=== PATIENT | female | born 1980 | race Caucasian/White ===

== ENCOUNTER → 2020-08-07 17:29 | Outpatient (CLI) | payer OTHER, SELFPAY ==
--- NOTE | ~2020-08-07 | MM_ITS ---
EXAMINATION: MM screening yancy BI w holly HISTORY: Screening TECHNIQUE: Craniocaudal and mediolateral oblique 3-D tomosynthesis images were obtained and synthetic 2-D images were generated. CAD analysis was submitted and interpreted. COMPARISON: 11/18/2018 BREAST PARENCHYMAL COMPOSITION: There are scattered areas of fibroglandular density. FINDINGS: There is no evidence of suspicious mass, calcification, or architectural distortion to sugg est malignancy in either breast. There has been no suspicious interval change. IMPRESSION: 1. No mammographic evidence of malignancy. 2. Recommend routine screening mammography in one year. BI-RADS Category 1: Negative Reviewed, dictated and finalized at location A.
== END ==
PROVIDERS: PCP Nurse Practitioner Adult Health; Visit Provider Nurse Practitioner Adult Health
DX: Z12.31 Encounter for screening mammogram for malignant neoplasm of breast (principal)
CPT/HCPCS: 77063; 77067

== ENCOUNTER 2020-11-01 09:06 | Outpatient (CLI) | payer OTHER, SELFPAY ==
--- NOTE | 2020-11-05 16:49 | WPDHOLTEREM ---
Holter/Event Monitor Holter/Event Monitor Date of procedure: 11/01/20 Holter/Event Procedure: 48 Hr Holter Monitor Indications: Palpitations Conclusion: 1. 48 hour holter monitor on 11/01/20. 2. Underlying rhtyhm is sinus rhythm. HR range 66-160 bpm; average HR 96 bpm. 3. There are 11 premature supraventricular complexes. No supraventricular tachycardia. 4. No premature ventricular complexes. One ventricular couplet. No ventricular tachycardia. 5. No sinoatrial or atrioventricular blocks. No significant pauses greater than 2 seconds. 6. Patient reports symptoms of dizziness/heart flutter which demonstrate sinus rhythm at 98 bpm.
== END 2020-11-01 09:07 | disposition home or self-care (01) ==
LOC: ANHCARD 09:07
PROVIDERS: PCP Nurse Practitioner Adult Health; Visit Provider Nurse Practitioner Adult Health
DX: R00.2 Palpitations (principal)
CPT/HCPCS: 93225; 93226

== ENCOUNTER 2021-06-01 19:10 | Emergency (ER) | payer OTHER, SELFPAY ==
[2021-06-01] VITALS (26 sets, daily range): BP systolic 113–146; BP diastolic 72–89; PULSE 93; RESP 18; TEMP 36.2; O2SAT 97–100
--- NOTE | ~2021-06-01 | US_ITS ---
EXAMINATION: US pelvic complete w TV DATE: 06/01/2021 22:48 INDICATION: Right lower quadrant abdominal pain. TECHNIQUE: Multiple transabdominal and transvaginal sonographic images of the pelvis were obtained. COMPARISON: CT abdomen and pelvis 06/01/21 FINDINGS: TRANSABDOMINAL ULTRASOUND: The uterus is absent. There is no free fluid in the pelvis. TRANSVAGINAL ULTRASOUND: The right ovary measures 4.8 x 3.6 x 3.6 cm. There is a 3.2 cm heterogeneously hyperechoic mass in ri ght ovary. There is vascular flow in right ovary. The left ovary is not visualized. IMPRESSION: 1. 3.2 cm heterogeneously hyperechoic mass in right ovary, most likely a hemorrhagic cyst. Neoplasm i s not excluded. Pelvis ultrasound is recommended in 6-12 weeks. Reviewed, dictated and finalized at location A. PILER IMPRESSION: 1. 3.2 cm heterogeneously hyperechoic mass in right ovary, most likely a hemorr hagic cyst. Neoplasm is not excluded. Pelvis ultrasound is recommended in 6-12 weeks.
--- NOTE | ~2021-06-01 | CT_ITS ---
EXAMINATION: CT abdomen pelvis w con DATE: 06/01/2021 20:43 INDICATION: Right lower quadrant abdominal pain. TECHNIQUE: Computed tomography (CT) of the abdomen and pelvis was performed with 100 mL Omnipaque 350 intravenous contrast. Automated exposure control and iterative reconstruction technique were employe d. The dose-length product was 1252.50 mGy-cm. COMPARISON: CT abdomen 11/12/2005 FINDINGS: The visualized portions of the lung bases demonstrates minimal atelectasis. No pleural effu carolyn. The heart size is normal. No pericardial effusion. The liver, gallbladder, spleen, pancreas, ad renal glands, and kidneys are normal. There is diverticulosis of the colon without evidence of divert iculitis. There are no dilated loops of bowel. The appendix is normal. There are no pathologically en larged lymph nodes. There is no free intraperitoneal fluid. The right ovary measures 4.6 x 3.1 x 4.4 cm. The left ovary measures 4.3 x 2.9 x 2.5 cm. There is a 2.2 cm dominant follicle in left ovary. Th e uterus is absent. Again seen are innumerable benign bone islands with greatest predominance in the pelvis, consistent with osteopoikilosis. IMPRESSION: 1. Asymmetric enlargement of the right ovary. The most likely etiology is hemorrhagic cyst, but torsi on cannot be excluded. Reviewed, dictated and finalized at location E. SAMPLER IMPRESSION: 1. Asymmetric enlargement of the right ovary. The most likely etiology is hemor rhagic cyst, but torsion cannot be excluded.
[2021-06-01 19:43] LABS: Basophils Percent Auto 0.4 % (0.2-1.2); Eosinophils Absolute Auto 0.2 K/mm3 (0-0.3); Eosinophils Percent Auto 2.5 % (0-4.4); Hematocrit 35.4 % (37.0-47.0); Hemoglobin 11.8 g/dL (12.0-15.0); Immature Granulocyte Absolute 0.03 K/mm3 (0.00-0.031); Immature Granulocyte Percent A 0.4 % (0-0.5); Lymphocytes Absolute Auto 2.48 K/mm3 (0.9-3.2); Lymphocytes Percent Auto 29.4 % (18.3-44.2); Mean Corpuscular HGB Conc 33.3 g/dl (32-36); Mean Corpuscular Hemoglobin 30.8 pg (26-34); Mean Corpuscular Volume 92.4 fl (80-100); Mean Platelet Volume 10.6 fl (7.4-10.4); Monocytes Absolute Auto 0.5 K/mm3 (0.1-0.6); Monocytes Percent Auto 6.4 % (2.6-8.5); Neutrophils Absolute Auto 5.2 K/mm3 (1.3-6.7); Neutrophils Percent Auto 60.9 % (45.5-73.1); Platelet Count Result 307 k/mm3 (150-375); Red Blood Count 3.83 M/mm3 (4.2-5.4); Red Cell Distribution Width 12.7 % (11.5-14.5); White Blood Count 8.4 K/mm3 (4.5-10.0)
[2021-06-01 19:46] LABS: Add Urine Microscopic? NO; Appearance Urine Clear (Clear); Bilirubin Urine Negative (Negative); Blood Urine Negative (Negative); Color Urine Straw (Yellow); Glucose Urine UA Negative (Negative); Ketones Urine Negative (Negative); Leukocyte Esterase Ur Negative LEU/UL (Negative); Nitrate Urine Negative (Negative); Protein Urine Negative (Negative); Specific Grav Ur 1.012 (1.001-1.035); Urobilinogen Urine Negative mg/dL (<2.0)
[2021-06-01 19:56] LABS: Pregnancy On Board Control Positive; Urine Pregnancy Test Negative
[2021-06-01 19:59] LABS: Alanine Aminotransferase 28 U/L (4-35); Albumin Level 4.3 g/dL (3.5-5.1); Alkaline Phosphatase 45 U/L (38-126); Anion Gap 12 mmol/L (8-16); Aspartate Amino Transferase 25 U/L (14-36); Bilirubin,Total 0.3 mg/dL (0.2-1.3); Blood Urea Nitrogen 9 mg/dL (7-17); Carbon Dioxide 26 mmol/L (22-30); Chloride 103 mmol/L (98-107); Estimated CRCL calculation 116 ml/min; Estimated Glomerular Filt Rate > 60; Glucose 139 mg/dL (65-110); Lipase 142 U/L (23-300); Potassium 3.8 mmol/L (3.4-5.0); Sodium 141 mmol/L (137-145)
--- NOTE | 2021-06-01 20:01 | ED.ABDPAIN ---
HPI - Abdominal Pain General Chief Complaint: Abdominal Pain <Mae Acevedo PA-C - Last Filed: 06/01/21 23:33> Stated Complaint: RLQ pain <Mae Acevedo PA-C - Last Filed: 06/01/21 23:33> Time Seen by Provider: 06/01/21 19:16 <Mae Acevedo PA-C - Last Filed: 06/01/21 23:33> Source: patient <Mae Acevedo PA-C - Last Filed: 06/01/21 23:33> Mode of arrival: ambulatory <VINCENT Hightower Last Filed: 06/01/21 23:33> Limitations: no limitations <Mae Acevedo PA-C - Last Filed: 06/01/21 23:33> History of Present Illness HPI narrative: This is a 40 year old female that presents to the ER for RLQ abdominal pain present over the last couple of days. Reports it was intermittent initially. Now it has been more constant. Does report some diarrhea. Denies fever, vomiting, dysuria, hematuria. <Mae Acevedo PA-C - Last Filed: 06/01/21 23:33> Related Data Allergies/Adverse Reactions: Allergies Allergy/AdvReac Type Severity Reaction Status Date / Time erythromycin base Allergy Unknown HIVES Verified 06/01/21 19:14 Penicillins Allergy Unknown HIVES Verified 06/01/21 19:14 <Mae Acevedo PA-C - Last Filed: 06/01/21 23:33> Review of Systems Review of Systems: CONSTITUTIONAL: Denies fever GASTROINTESTINAL: Reports abdominal pain, and diarrhea. Denies nausea or vomiting. GENITOURINARY: Denies dysuria or hematuria. <Mae Acevedo PA-C - Last Filed: 06/01/21 23:33> All systems reviewed & are unremarkable except as noted in HPI and below <Mae Acevedo PA-C - Last Filed: 06/01/21 23:33> PMFSH Past Medical History Medical History: Medical History (Updated 06/02/21 @ 02:02 by Pedro Luis Ferrara MD) History of diabetes mellitus <VINCENT Hightower Last Filed: 06/01/21 23:33> Surgical History Surgical History: Surgical History (Updated 06/01/21 @ 20:05 by Mae Acevedo PA-C) History of section History of hysterectomy <Mae Acevedo PA-C - Last Filed: 06/01/21 23:33> Social History Social History: Social History (Updated 06/01/21 @ 20:04 by Mae Acevedo PA-C) Substance use: never <Mae Acevedo PA-C - Last Filed: 06/01/21 23:33> Exam Narrative: GENERAL: Well-appearing, well-nourished, and in no acute distress. HEAD: Normocephalic, atraumatic. EYES: EOMI. CHEST: Clear to auscultation. No respiratory distress. No wheezes rales or rhonchi HEART: Regular rate and rhythm. No murmur heard. Normal peripheral pulses. ABDOMEN: Soft, nondistended, normal active bowel sounds. Tender to palpation in the right lower quadrant, without guarding EXTREMITIES: Normal range of motion. No edema. SKIN: Warm, dry, no rash. NEURO: No focal deficits. Alert and oriented x3. PSYCH: Normal mood and affect <Mae Acevedo PA-C - Last Filed: 06/01/21 23:33> Course Course Emergency Course: Patient with prolonged wait for ultrasound reading. Resting comfortably. Informed of results. Recommend follow-up with Dr. Avila for further evaluation since this is her criminal justice social worker. <Pedro Luis Ferrara MD - Last Filed: 06/02/21 02:05> Vital Signs Vital signs: Vital Signs Temperature 97.1 F L 06/01/21 19:11 Pulse Rate 93 06/01/21 19:11 Respiratory Rate 18 06/01/21 19:11 Blood Pressure 146/89 H 06/01/21 19:11 Pulse Oximetry 100 06/01/21 19:11 Temperature 97.1 F L 06/01/21 19:11 Pulse Rate 93 06/01/21 19:11 Respiratory Rate 18 06/01/21 19:11 Blood Pressure 124/72 06/01/21 23:01 Pulse Oximetry 100 06/01/21 23:45 <Mae Acevedo PA-C - Last Filed: 06/01/21 23:33> Vital Signs Temperature 97.1 F L 06/01/21 19:11 Pulse Rate 93 06/01/21 19:11 Respiratory Rate 18 06/01/21 19:11 Blood Pressure 146/89 H 06/01/21 19:11 Pulse Oximetry 100 06/01/21 19:11 Temperature 97.1 F L 06/01/21 19:11 Pulse Rate 93 06/01/21 19:11 Respiratory Rate 18 06/01/21
[2021-06-01] MEDS: ONDANSETRON INJ 4 MG/2 ML VIAL IV PUSH (20:07)
[2021-06-01] MEDS: MORPHINE SULFATE (*CRX) 4 MG/ML INJ IV PUSH (20:08)
[2021-06-02] VITALS (8 sets, daily range): BP systolic 125; BP diastolic 82; PULSE 79; RESP 18; O2SAT 99–100
== END 2021-06-02 02:37 | disposition home or self-care (01) ==
PROVIDERS: Physician Assistant; Emergency Provider Emergency Medicine; PCP Nurse Practitioner Adult Health
DX: N83.201 Unspecified ovarian cyst, right side (principal); E11.9 Type 2 diabetes mellitus without complications
CPT/HCPCS: 36415; 74177; 76830; 76856; 80053; 81003; 81025; 83690; 85025; 96365; 96375; 99284; J0131; J2270; J2405; Q9967

== ENCOUNTER 2021-08-01 07:27 | Outpatient (CLI) | payer OTHER, SELFPAY ==
--- NOTE | 2021-08-01 07:43 | ECG_ITS ---
Measurements Intervals [place] Rate: 88 P: 26 [place]: 134 QRS: 97 QRSD: 90 T: 43 QT: 369 QTc: 448 Interpretive Statements SINUS RHYTHM RIGHT AXIS DEVIATION [QRS AXIS > 90] CANNOT RULE OUT ANTERIOR INFARCTION, AGE UNDETERMINED BASELINE ARTIFACT LIMITS INTERPRETATION ABNORMAL ECG NO PREVIOUS ECG AVAILABLE FOR COMPARISON Electronically Signed On 08-01-2021 16:54:05 CDT by Cortez Harvey M.D.
[2021-08-01 08:11] LABS: Hematocrit 38.5 % (37.0-47.0); Hemoglobin 12.6 g/dL (12.0-15.0)
[2021-08-01 08:21] LABS: Anion Gap 7 mmol/L (8-16); Blood Urea Nitrogen 12 mg/dL (7-17); Calcium 8.3 mg/dL (8.4-10.2); Carbon Dioxide 27 mmol/L (22-30); Chloride 104 mmol/L (98-107); Estimated Glomerular Filt Rate > 60; Glucose 171 mg/dL (65-110); Potassium 4.1 mmol/L (3.4-5.0); Sodium 138 mmol/L (137-145)
== END 2021-08-01 07:28 | disposition home or self-care (01) ==
PROVIDERS: Anesthesiology; PCP Nurse Practitioner Adult Health; Visit Provider Obstetrics & Gynecology
DX: E11.9 Type 2 diabetes mellitus without complications (principal); D64.9 Anemia, unspecified; E78.5 Hyperlipidemia, unspecified; I10 Essential (primary) hypertension; Z01.818 Encounter for other preprocedural examination; R94.31 Abnormal electrocardiogram [ECG] [EKG]
CPT/HCPCS: 36415; 80048; 85014; 85018; 93005

== ENCOUNTER 2021-08-05 00:51 | Day surgery (SDC) | payer OTHER, SELFPAY ==
[2021-07-30 09:01] VITALS: BMI 36.6
--- NOTE | 2021-07-30 09:09 | PC.NURSE ---
Report to the Outpatient Waiting Room, entrance under the green pavilion located off [facility], at time 6:00 on date 08/05/21. OR Time: 7:30. - You and your visitor will be asked a series of questions to screen for COVID 19 for your protection. - A mask is required within the hospital. One visitor will be allowed to accompany the patient into the hospital. Patients visitor will be instructed to remain with patient at all times or leave the building. We will allow the visitor to come back to the postoperative area when patient is ready. Preoperative COVID Testing Requirements: No COVID Test needed if: (proof is required; if not received patient will have Rapid Test prior to entry) - Patient has received COVID Vaccine at least 14 days prior to procedure date or - Patient has positive COVID test result within last 90 days of surgery date. COVID Test needed if above criteria is not met Patients may have clear liquids (water, carbonated beverages, clear teas, apple juice) until 3 hours prior to surgery (4:30) with a maximum of 20 ounces. - No food from midnight until time of surgery Take the following medications with a SIP of water the morning of surgery: LEVOTHYROXINE, CEFDINIR, BUSPIRONE, LEXAPRO Medications to discontinue per physician: VITAMINS/SUPPLEMENTS Date to take last dose: 08/01/21 Please no make-up, nail qatari, hairspray, perfume, deodorant, or body powder the day of surgery. No jewelry (including any body piercings) or valuables the day of surgery, leave them at home. Please take a shower or bath the night before, or the morning of, surgery with an antibacterial soap. Wear comfortable, loose fitting clothing. - Jewelry must be removed prior to entering the operating room. Rings and piercings that are not removed may be cut off. - The hospital will not accept responsibility for valuables. - Please leave all valuables, including medications, at home the day of surgery. If you are going home after surgery, a licensed dray driver must drive you home. - NO public transportation without another adult. - We recommend that an adult stay with you for 24 hours following discharge. - We also recommend that you do not drive, make important decision, drink alcoholic beverages, or take any drugs that were not prescribed by your health care provider for at least 24 hours after your discharge time. Follow any additional instructions given to you from your surgeon. Telephone instructions given to BRITANY NOEL and asked if any additional questions and then verbalized understanding. Patient advised to call surgeon office or pre surgery nurse liaison [phone] if any additional questions.
--- NOTE | 2021-08-04 18:49 | PM.IMHP ---
H&P: HPI History of Present Illness Date/Time: 08/05/21 07:06 Temi is a 40yo perimenopausal [id number] who presents for scheduled surgery. She has a h/o c/s x3 with h/o prolonged AUB, and subsequent TLH. She reports scar tissue and long standing h/o ovarian cysts (always on the right). She had sharp RLQ which lasted for a couple days which concerned her for appendicitis. She went to [place] [facility] where CT and US were performed and showed a right hemorrhagic cyst. She has continued pain; taking OTC pain meds PRN and percocet at night if needed (prescribed by ER). Repeat US showed normal ovaries but left paratubal cyst. She is tired of dealing with pain and cysts and would like to proceed with right oophorectomy with salpingectomy. Chief Complaint: pelvic pain Review of Systems Review of Systems: All systems reviewed & are unremarkable except as noted in HPI and below (HPI) PMFSH Past Medical History Medical History High blood pressure History of diabetes mellitus Thyroid disease Surgical History Surgical History H/O gynecological procedure laparoscopic Novasure uterine ablation, laparoscopy, T/L - menometrorrhagia, dysmenorrhea, undesired fertility History of section History of dilation and curettage History of hysterectomy History of tonsillectomy Family History Family History Other Heart disease Social History Social History Smoking status: Never smoker Alcohol intake: never Substance use: never Substance use type: does not use Living arrangements: with family Gender identity (if verbalized by the patient): Female Spiritual care concerns: No Meds Home Medications and Allergies Home Medications Medication Instructions Recorded Confirmed Type atorvastatin 10 mg PO DAILY 07/30/21 08/05/21 History benzonatate 100 mg PO HS 07/30/21 08/05/21 History buspirone 10 mg PO BID 07/30/21 08/05/21 History ergocalciferol (vitamin D2) 1,250 mcg PO WEEKLY 07/30/21 08/05/21 History [Vitamin D2] escitalopram oxalate [Lexapro] 5 mg PO DAILY 07/30/21 08/05/21 History ferrous sulfate 325 mg PO DAILY 07/30/21 08/05/21 History glipizide 5 mg PO TID 07/30/21 08/05/21 History lemborexant [Dayvigo] 5 mg PO HS 07/30/21 08/05/21 History levothyroxine 25 mcg PO DAILY 07/30/21 08/05/21 History lisinopril 20 mg PO DAILY 07/30/21 08/05/21 History metformin 1,000 mg PO BID 07/30/21 08/05/21 History semaglutide [Ozempic] 1 mg SUBCUT WEEKLY 07/30/21 08/05/21 History Allergies Allergy/AdvReac Type Severity Reaction Status Date / Time erythromycin base Allergy Unknown ASSUMING Verified 08/05/21 06:25 HIVES A KID Penicillins Allergy Unknown ASSUMING Verified 08/05/21 06:25 HIVES A KID Exam Const: General: cooperative, comfortable and no acute distress Resp: Effort & Inspection: normal respiratory effort Cardio: Rate: regular rate GI: Inspection: non-distended GI Palp: No abdominal tenderness and Yes Soft to palpation : Other: deferred to OR Skin: General skin exam: normal color Neuro: General: patient oriented x3 Extrem: General: normal to inspection Psych: Appearance: grossly normal Affect: normal affect Attitude: cooperative Assessment and Plan Assessment and plan (1) Chronic pelvic pain in female: Code(s): R10.2 - Pelvic and perineal pain; G89.29 - Other chronic pain Status: Acute (2) Paratubal cyst: Code(s): N83.8 - Other noninflammatory disorders of ovary, fallopian tube and broad ligament Status: Acute Additional Plan - Temi has a h/o complex Right ovarian cyst; which was found to be hemorrhagic and has resolved, but a paratubal cyst is noted. Pt has been counseled on these findings, but wants to proceed with right
[2021-08-05] VITALS (21 sets, daily range): BP systolic 101–145; BP diastolic 64–93; PULSE 87–129; RESP 12–20; TEMP 36.1–36.7; O2SAT 94–100
--- NOTE | ~2021-08-05 | CT_ITS ---
EXAMINATION: CT abdomen pelvis w con EXAM DATE: 08/06/2021 08:53 INDICATION: Incisional hematoma with continued drop in h/h . TECHNIQUE: Spiral CT of the abdomen and pelvis was performed following intravenous injection of 100 m L Omnipaque 350. Axial, coronal and sagittal images of the abdomen and pelvis were reviewed. The do se-length product (DLP) for this examination was 1270.79 mGy-cm. The exposure was tailored according to patient size (auto mA exposure control), and iterative reconstruction (ASIR) was used as addition al dose reduction technique. Comparison is made to prior examination from 06/01/2021. FINDINGS: There appears to be a pressure dressing over the left side of the abdomen. Deep to this hyp erdense region measuring 7.5 x 5.2 cm in axial dimensions, most likely hematoma within the subcutaneo us fat. This does not appear to have a contained wall. There is asymmetric thickness to the anterior abdominal muscles with the left being thicker, could be the source of the larger subcutaneous hemato ma. Small scattered foci of gas. No retroperitoneal hematoma. The liver, spleen, adrenal glands and pancreas are unremarkable. Gallbladder is unremarkable. No bi liary obstruction. Portal and splenic veins are patent. Kidneys enhance symmetrically. There is no hydronephrosis. Patient appears to had hysterectomy. There is 5 x 3 cm left ovarian cystic region. Probably hemorrhagic cyst. The bladder is unremarkable. There is no retroperitoneal or pelvic lymp hadenopathy. The appendix is normal. The stomach and small bowel are unremarkable. There is expected amount of c olonic stool. No free intraperitoneal gas. The heart is normal in size. There are no pericardial or pleural effusions. The lung bases are unremarkable. There are no osteoblastic or osteolytic les ions identified. IMPRESSION: 1. Sizable left mid abdominal subcutaneous hematoma with some thickening of the left abdominalis musc ulature, could be the source. Overlying pressure dressing. No retroperitoneal hematoma. 2. Interval increase in size of left ovary probably hemorrhagic cyst. Reviewed, dictated and finalized at location A. IMPRESSION: 1. Sizable left mid abdominal subcutaneous hematoma with some thickening of the left abdominalis musculature, could be the source. Overlying pressure dressing . No retroperitoneal hematoma. 2. Interval increase in size of left ovary probably hemorrhagic cyst.
[2021-08-05] MEDS: ACETAMINOPHEN 500 MG TABLET 1000 MG PO ×2 (06:29→18:51)
[2021-08-05] MEDS: LACTATED RINGERS 1,000 ML 30 ML IV CONT ×2 (06:35→11:24)
[2021-08-05] MEDS: KETOROLAC 15 MG/ML VIAL (*BKC) IV PUSH (06:44)
[2021-08-05 06:49] LABS: Glucose Point of Care 135 mg/dl (65-105)
--- NOTE | 2021-08-05 07:07 | WPDHPUPDATE1 ---
History and Physical Update Update Date/Time: 08/05/21 07:07 History and Physical has been reviewed, including an updated exam of the patient. There are NO changes in the patient's condition. Risks, benefits, and alternatives have been discussed and questions answered. Patient agrees to proceed with procedure.
--- NOTE | 2021-08-05 07:08 | WPDANESEPPF ---
Anes - Initial Pre Proc Eval Procedure: Operation Date: 08/05/21 07:30 Proposed Procedures p Laparoscopic Right Oophorectomy - Malka Preciado MD Date/Time: 08/05/21 07:08 Surgeon: Malka Preciado MD Pre Op Diagnosis: right ovarian cyst Patient Data Age: 40 Gender: F Height: 1.63 m Weight: 97.7 kg Last Vital Signs Temp 36.1 C L 08/05/21 06:03 Pulse 87 08/05/21 06:03 Resp 20 08/05/21 06:03 BP 101/69 08/05/21 06:03 Pulse Ox 99 08/05/21 06:03 Allergies Allergy/AdvReac Type Severity Reaction Status Date / Time erythromycin base Allergy Unknown ASSUMING Verified 08/05/21 06:25 HIVES A KID Penicillins Allergy Unknown ASSUMING Verified 08/05/21 06:25 HIVES A KID Home Medications Medication Instructions Recorded Confirmed Type atorvastatin 10 mg PO DAILY 07/30/21 08/05/21 History benzonatate 100 mg PO HS 07/30/21 08/05/21 History buspirone 10 mg PO BID 07/30/21 08/05/21 History ergocalciferol (vitamin D2) 1,250 mcg PO WEEKLY 07/30/21 08/05/21 History [Vitamin D2] escitalopram oxalate [Lexapro] 5 mg PO DAILY 07/30/21 08/05/21 History ferrous sulfate 325 mg PO DAILY 07/30/21 08/05/21 History glipizide 5 mg PO TID 07/30/21 08/05/21 History lemborexant [Dayvigo] 5 mg PO HS 07/30/21 08/05/21 History levothyroxine 25 mcg PO DAILY 07/30/21 08/05/21 History lisinopril 20 mg PO DAILY 07/30/21 08/05/21 History metformin 1,000 mg PO BID 07/30/21 08/05/21 History semaglutide [Ozempic] 1 mg SUBCUT WEEKLY 07/30/21 08/05/21 History Laboratory Tests 08/05/21 06:42 POC Capillary Glucose 135 mg/dl H mg/dl (65-105) Patient hx anesthesia problems: none Family hx anesthesia problems: none Results Review: All pre-operative results and documents have been reviewed as part of the pre-operative evaluation. [facility] Past Medical History Medical History (Updated 08/05/21 @ 07:11 by Andrew Gonzalez MD) Anxiety Depression High blood pressure History of diabetes mellitus Hyperlipidemia Thyroid disease Surgical History Surgical History H/O gynecological procedure laparoscopic Novasure uterine ablation, laparoscopy, T/L - menometrorrhagia, dysmenorrhea, undesired fertility History of section History of dilation and curettage History of hysterectomy History of tonsillectomy Family History Family History Other Heart disease Social History Social History Smoking status: Never smoker Alcohol intake: never Substance use: never Substance use type: does not use Living arrangements: with family Gender identity (if verbalized by the patient): Female Spiritual care concerns: No Anes - Eval Final PreProcedure Day of Procedure 08/05/21 07:08 Patient weight: obese Heart: regular rate and rhythm Lungs: clear to auscultation and normal air movement Airway: Mallampati scale class II Neurological: alert and oriented Last oral intake: >/= 8 hours ASA classification: III Emergent: no Anesthetic plan: proceed Anesthesia type and monitoring: general ETT Results Review: All pre-operative results and documents have been reviewed as part of the pre-operative evaluation. Informed Consent: The patient's anesthetic plan and its attendant risks and benefits were discussed with the patient/family/POA. Questions were solicited and answers provided to the satisfaction of the patient/family/POA.
[2021-08-05 10:38] LABS: Glucose Point of Care 267 mg/dl (65-105)
--- NOTE | 2021-08-05 10:41 | SUR.PHASEI ---
1032 - Dr. Gonzalez aware of accucheck of 267. no orders received
--- NOTE | 2021-08-05 10:49 | W.PM.PROC2 ---
Procedure Note - Detailed Date of Procedure 08/05/21 Pre-op Diagnosis right ovarian cyst Post-op Diagnosis Other (extensive adhesions, left ovarian cyst) Procedure Performed Laparoscopic right salpingo-oophorectomy, lysis of adhesions Surgeon Malka Preciado MD [employer] [facility] [place] Anesthesia General Indications Temi is a 40yo who presented to clinic with RLQ pain; she had been seen in the ER for concerns of appendicitis but was diagnosed with a hemorrhagic cyst. She reports a h/o recurrent RLQ pain and cysts and desired laparoscopic oophorectomy. Findings Uterus surgically absent. Extensive adhesions of the small bowel and large bowel adhered to the abdomen, pelvic side black, bladder, ovaries and in the cul-de-sac. Initially neither ovary was visualized until after extensive lysis of adhesions. Dr. Arellano was called in intra-operatively to look at the bowel and verify no injury (he did not scrub in). The right ovary was noted to be adhered to the right pelvic side wall; small hemorrhagic cyst noted, normal small portion of tube noted. Right ureter was visualized transperitoneally and well out of the surgical field. The left ovary was covered with dense adhesions and fat; when trying to dissect the adhesions; the ovarian cyst was ruptured and clear/yellow fluid was noted. No left tube was identified. The pelvis was irrigated and suctioned free of all clots. Hemoderm powder used at the end; but good hemostasis was noted. Description of Procedure Temi was taken to the operating room where she was placed under general endotracheal anesthesia without complications. She was then prepped and draped in the usual sterile fashion in the dorsal lithotomy position with her legs in low Miguel stirrups and her arms tucked at her sides. A time-out was performed and no preoperative antibiotics were indicated. The umbilicus was infiltrated with 0.25% Marcaine with epinephrine. An umbilical incision was made and a 5 mm trocar was placed under direct visualization without complications. Once intra-abdominal placement was confirmed, the abdomen was insufflated with carbon dioxide gas. Two additional ports were infiltrated with Marcaine and the ports were placed in the left quadrant under direct visualization, 1 being a 5 mm in the left lower quadrant and a 10 mm in the mid left quadrant. An additional 5 mm port was placed in the right lower quadrant under direct visualization without complications. The omental adhesions were taken down using the LigaSure device as well as laparoscopic scissors. Multiple bowel loops were noted to be adhered to the right lower quadrant pelvic sidewall and anterior abdominal wall. Neither of the ovaries were visualized due to the dense adhesions. The adhesions were slowly taken down paying careful attention to not injure the bowel or bowel serosa. After approximately 45 minutes of removing the adhesions the right ovary was then visualized. However the ovary was also adhered to the pelvic sidewall and had bowel adhered to the underneath side of the ovary. While taking down some of the adhesions I was concerned for a bowel serosal injury, therefore Dr. Arellano was called into the operating room, where he verified no serosal injury had occurred. He verified a good plane of adhesions and encouraged that I continue to remove them in the direction that I was moving. The right ovary was then free of bowel adhesions and the posterior cul-de-sac was finally visualized. My attention was turned to the left side where I began releasing some of the adhesions on the left side, and at that point I identified a 3 cm ovarian cyst on the left ovary. I continued trying to dissect the adhesions, the left ovarian cyst ruptured and yellow/clear fluid was noted and suctioned out. I could not easily identify any fallopian tube on the left side and decided to leave the left ovary alone as the plan was to removed the right ovary and I did not want to risk injuring the
[2021-08-05] MEDS: fentaNYL CITRATE INJ (*CRX) 100 MCG/2 ML VIAL 25 MCG IV PUSH ×8 (11:05→15:00)
[2021-08-05] MEDS: oxyCODONE HCL (*CRX) 5 MG TAB IR PO ×2 (11:46→19:32)
[2021-08-05] MEDS: CLINDAMYCIN 900 MG/D5W 50 ML 900 MG/50 ML PIGGYBACK 50 MG IVPB (13:33)
--- NOTE | 2021-08-05 13:35 | SUR.PHASEII ---
This nurse about about to discharge the pt and one of her incisions was firm. this nurse called dr dodge room to inform her that pt incision was hard. dr dodge said she will come out after her case.
--- NOTE | 2021-08-05 14:46 | SUR.PHASEI ---
1444 - incision site with swelling and firmness. dr. dodge aware at bedside
[2021-08-05] MEDS: TRANEXAMIC ACID 1,000 MG/10 ML AMPUL 1000 MG IV PUSH (15:08)
[2021-08-05 15:16] LABS: Glucose Point of Care 212 mg/dl (65-105)
[2021-08-05 15:26] LABS: Hematocrit 32.1 % (37.0-47.0); Hemoglobin 10.8 g/dL (12.0-15.0); Mean Corpuscular HGB Conc 33.6 g/dl (32-36); Mean Corpuscular Hemoglobin 31.2 pg (26-34); Mean Corpuscular Volume 92.8 fl (80-100); Platelet Count Result 289 k/mm3 (150-375); Red Blood Count 3.46 M/mm3 (4.2-5.4); Red Cell Distribution Width 12.1 % (11.5-14.5); White Blood Count 14.8 K/mm3 (4.5-10.0)
--- NOTE | 2021-08-05 15:45 | SUR.PHASEI ---
1530 - dr. dodge at bedside assessing pt's hematoma site
--- NOTE | 2021-08-05 16:32 | ADMGEN ---
280-This patient, Temi Smith, was admitted to OB 2nd Floor Room 280-00. Patient/family oriented to hospital policies and general routines including ID bracelet, bed and alarms, visiting hours, pain management, procedures, bathroom and other care routines, personal items, smoking policy, room service/diet, and visiting hours. Information on how to activate the Rapid Response Team has been discussed. Patient/Family are encouraged to report perceived risks to care and to ask questions if they do not understand what they are told or what they should do.
[2021-08-06] MEDS: ACETAMINOPHEN 500 MG TABLET 1000 MG PO ×3 (00:01→12:09)
[2021-08-06] MEDS: oxyCODONE HCL (*CRX) 5 MG TAB IR PO ×4 (00:01→12:10)
[2021-08-06 04:10] VITALS: BP 106/84; PULSE 86; RESP 16; TEMP 36.7; O2SAT 98
[2021-08-06 05:44] LABS: Hematocrit 24.6 % (37.0-47.0); Hemoglobin 8.5 g/dL (12.0-15.0); Mean Corpuscular HGB Conc 34.6 g/dl (32-36); Mean Corpuscular Volume 89.8 fl (80-100); Mean Platelet Volume 10.7 fl (7.4-10.4); Platelet Count Result 290 k/mm3 (150-375); Red Blood Count 2.74 M/mm3 (4.2-5.4); Red Cell Distribution Width 12.1 % (11.5-14.5); White Blood Count 12.4 K/mm3 (4.5-10.0)
--- NOTE | 2021-08-06 07:21 | PM.GYNPNOP ---
DUMP MOTOR OPERATOR - A/P Assessment and plan (1) S/P laparoscopic procedure: Code(s): Z98.890 - Other specified postprocedural states Status: Acute (2) Hematoma of abdominal wall: Qualifiers: Encounter type: initial encounter Qualified Code(s): S30.1XXA - Contusion of abdominal wall, initial encounter Code(s): S30.1XXA - Contusion of abdominal wall, initial encounter Status: Acute Assessment and Plan: - Large ecchymosis noted (which is expected) and she is clinically stable w/ normal vitals - But, there's a large drop in H/H -- CT A/P w/wo contrast ordered to verify that hematoma has not spread intra-abdominally - pain controlled; otherwise meeting post-op milestones Postoperative Procedures: Procedures Operation Date: 08/05/21 07:30 Actual Procedure Side Surgeon p Diagnostic Laparoscopy, Right Salpingo-Oophorectomy, Lysis of Adhesions Right Malka Preciado MD Operation Date: 08/05/21 13:15 Actual Procedure Side Surgeon p Evacuation Abdominal Hematoma Malka Preciado MD Postoperative day: 1 Time Spent With Patient Time: Total time spent is greater than 50% in coordination of care (as documented) at patient's floor/unit and/or counseling patient: Time with patient: less than 15 minutes DUMP MOTOR OPERATOR- PN:Subj Post-Op Subjective Date/time seen: 08/06/21 06:58 POD#1 Temi reports doing well. Her pain is controlled with PO meds, her left side is very tender. She wore the pressure dressing and binder all last night without issue. She tolerated regular diet last night, has not eaten this morning. She has voided and passed gas. Ambulated without issue. She denies symptoms of anemia; but does feel pale. Review of Systems Constitutional: Constitutional: Denies chills, Denies fever(s) and Denies headache(s) Eyes: Eyes: Denies change in vision ENT: Denies dizziness and Denies headache(s) Cardiovascular: Cardiovascular: Denies chest pain, Denies palpitations and Denies dyspnea Respiratory: Respiratory: Denies cough and Denies dyspnea Gastrointestinal: Gastrointestinal: Denies nausea and Denies vomiting Integumentary/Breasts: Skin/Breast: Reports other (large bruise on mid-to lower left side extending into flank) Neurologic: Denies dizziness and Denies headache(s) Psychiatric: Psychiatric: Denies anxiety Endocrine: Endocrine: Denies palpitations Exam Const: General: cooperative, comfortable and no acute distress Orientation/consciousness: patient oriented x3 Resp: Effort & Inspection: normal respiratory effort Auscultation: clear to auscultation bilaterally Cardio: Rate: regular rate GI: Inspection: non-distended, incision (3 incisions w/o issue & covered w/ dermabond) and other (left mid incision marked; hematoma less than marking; large bruise noted) GI Palp: Yes abdominal tenderness (appropriate) and Yes Soft to palpation Auscultation: normal bowel sounds Skin: General skin exam: normal color Neuro: General: patient oriented x3 Extrem: General: normal to inspection Psych: Appearance: grossly normal Affect: normal affect Attitude: cooperative DUMP MOTOR OPERATOR - PN: Obj Data Vital Signs Vital Signs: Vital Signs - 24 hr 08/05/21 10:32 08/05/21 10:45 08/05/21 11:00 Temperature 98.1 F Pulse Rate 118 H 100 89 Respiratory Rate 14 14 14 Blood Pressure 145/86 H 127/66 117/67 Pulse Oximetry 96 99 95 08/05/21 11:15 08/05/21 11:30 08/05/21 11:32 Temperature Pulse Rate 89 105 H 91 Respiratory Rate 14 12 16 Blood Pressure 120/79 119/74 125/69 Pulse Oximetry 97 94 08/05/21 12:00 08/05/21 12:30 08/05/21 13:00 Temperature Pulse Rate 96 98 108 H Respiratory Rate 16 16 16 Blood Pressure 114/72 122/72 137/72 Pulse Oximetry 08/05/21 14:34 08/05/21 14:45 08/05/21 15:00 Temperature Pulse Rate 129 H 127 H 120 H Respiratory Rate 14 12 12 Blood Pressure 130/74 137/81 133/93 H Pulse Oximetry 100 100 100 08/05/21 15:15 08/05/21 15:30 08/05/21 15:45
[2021-08-06 08:00] LABS: Hematocrit 24.4 % (37.0-47.0); Hemoglobin 8.1 g/dL (12.0-15.0); Mean Corpuscular HGB Conc 33.2 g/dl (32-36); Mean Corpuscular Hemoglobin 30.8 pg (26-34); Mean Corpuscular Volume 92.8 fl (80-100); Mean Platelet Volume 10.4 fl (7.4-10.4); Platelet Count Result 266 k/mm3 (150-375); Red Blood Count 2.63 M/mm3 (4.2-5.4); Red Cell Distribution Width 12.3 % (11.5-14.5); White Blood Count 10.8 K/mm3 (4.5-10.0)
[2021-08-06 08:10] LABS: Alanine Aminotransferase 24 U/L (4-35); Alkaline Phosphatase 27 U/L (38-126); Anion Gap 8 mmol/L (8-16); Aspartate Amino Transferase 28 U/L (14-36); Bilirubin,Total 0.2 mg/dL (0.2-1.3); Blood Urea Nitrogen 8 mg/dL (7-17); Calcium 7.8 mg/dL (8.4-10.2); Carbon Dioxide 21 mmol/L (22-30); Chloride 105 mmol/L (98-107); Estimated CRCL calculation 169 ml/min; Estimated Glomerular Filt Rate > 60; Glucose 149 mg/dL (65-110); Potassium 3.7 mmol/L (3.4-5.0); Sodium 134 mmol/L (137-145)
--- NOTE | 2021-08-06 09:42 | WPDANESPN ---
Anes - Prog Note Post-Op Date/Time: 08/06/21 09:42 Cardiovascular status: normal Respiratory status: normal Airway patency: baseline Mental status: baseline Post-Op hydration status: normal Vital Signs: Last Vital Signs Temp 98.1 F 08/06/21 04:10 Pulse 86 08/06/21 04:10 Resp 16 08/06/21 04:10 BP 106/84 08/06/21 04:10 Pulse Ox 98 08/06/21 04:10 Pain Score (VAS): 4 I/O: Intake & Output 08/05/21 08/06/21 08/06/21 23:59 07:59 15:59 Intake Total 1450 Output Total 1450 1000 Balance 0 -1000 Laboratory Tests 08/06/21 07:53 08/06/21 07:53 08/05/21 08/05/21 08/05/21 10:35 14:40 15:16 WBC 14.8 H RBC 3.46 L Hgb 10.8 L Hct 32.1 L MCV 92.8 MCH 31.2 MCHC 33.6 RDW 12.1 Plt Count 289 MPV 10.0 Sodium Potassium Chloride Carbon Dioxide Anion Gap BUN Creatinine Estim Creat Clear Calc Estimated GFR Glucose POC Capillary Glucose 267 H 212 H Calcium Total Bilirubin AST ALT Alkaline Phosphatase Total Protein Albumin 08/06/21 08/06/21 08/06/21 04:19 07:53 07:53 WBC 12.4 H 10.8 H RBC 2.74 L 2.63 L Hgb 8.5 L 8.1 L Hct 24.6 L 24.4 L MCV 89.8 92.8 MCH 31.0 30.8 MCHC 34.6 33.2 RDW 12.1 12.3 Plt Count 290 266 MPV 10.7 H 10.4 Sodium 134 L Potassium 3.7 Chloride 105 Carbon Dioxide 21 L Anion Gap 8 BUN 8 Creatinine 0.40 L Estim Creat Clear Calc 169 Estimated GFR > 60 Glucose 149 H POC Capillary Glucose Calcium 7.8 L Total Bilirubin 0.2 AST 28 ALT 24 Alkaline Phosphatase 27 L Total Protein 5.0 L Albumin 3.0 L Post-procedural complaints: none Patient Feedback: Patient satisfied with anesthetic care.
[2021-08-06 10:25] VITALS: BP 102/62; PULSE 90; RESP 18; TEMP 36.3
[2021-08-06 12:00] VITALS: BP 102/62; PULSE 90; RESP 18; TEMP 36.3; O2SAT 98
--- NOTE | 2021-08-06 14:13 | PC.NURSE ---
Pt. discharge instructions given including when to return to office for follow up visit. Pt. voiced. understanding. See discharge packet.
== END 2021-08-06 14:58 | disposition home or self-care (01) ==
LOC: ANHSURGERY 13:09 → ANHOB2 16:30
PROVIDERS: PCP Nurse Practitioner Adult Health; Visit Provider Obstetrics & Gynecology
PROC: (CPT 49320; principal; 2021-08-05 07:30)
DX: N83.11 Corpus luteum cyst of right ovary (principal); L76.32 Postprocedural hematoma of skin and subcutaneous tissue following other procedure; N83.01 Follicular cyst of right ovary; N73.6 Female pelvic peritoneal adhesions (postinfective); N93.9 Abnormal uterine and vaginal bleeding, unspecified; Y83.8 Other surgical procedures as the cause of abnormal reaction of the patient, or of later complication, without mention of misadventure at the time of the procedure; R10.2 Pelvic and perineal pain; G89.29 Other chronic pain; I10 Essential (primary) hypertension; E11.9 Type 2 diabetes mellitus without complications; E07.9 Disorder of thyroid, unspecified; Z79.84 Long term (current) use of oral hypoglycemic drugs; E66.9 Obesity, unspecified; Z68.37 Body mass index [BMI] 37.0-37.9, adult
CPT/HCPCS: 10140; 58661; 36415; 74177; 80048; 80053; 82948; 85014; 85018; 85027; 88305; 93005; 99199; A9270; J0330; J1100; J1170; J1885; J2250; J2405; J2704; J2710; J3010; J7030; J7120; Q9967

== ENCOUNTER 2021-08-15 13:29 | Emergency (ER) | payer OTHER, SELFPAY ==
[2021-08-15] VITALS (15 sets, daily range): BP systolic 126–136; BP diastolic 65–85; PULSE 88–101; RESP 14–24; TEMP 36.8; O2SAT 95–100
[2021-08-15 15:07] LABS: Basophils Percent Auto 0.3 % (0.2-1.2); Eosinophils Absolute Auto 0.1 K/mm3 (0-0.3); Eosinophils Percent Auto 1.3 % (0-4.4); Hemoglobin 9.1 g/dL (12.0-15.0); Immature Granulocyte Absolute 0.13 K/mm3 (0.00-0.031); Immature Granulocyte Percent A 1.2 % (0-0.5); Lymphocytes Absolute Auto 1.47 K/mm3 (0.9-3.2); Lymphocytes Percent Auto 13.4 % (18.3-44.2); Mean Corpuscular HGB Conc 32.5 g/dl (32-36); Mean Corpuscular Hemoglobin 31.2 pg (26-34); Mean Corpuscular Volume 95.9 fl (80-100); Mean Platelet Volume 9.4 fl (7.4-10.4); Monocytes Absolute Auto 0.6 K/mm3 (0.1-0.6); Monocytes Percent Auto 5.3 % (2.6-8.5); Neutrophils Absolute Auto 8.7 K/mm3 (1.3-6.7); Neutrophils Percent Auto 78.5 % (45.5-73.1); Nucleated Red Blood Cells Perc 0.2 % (0.0-0.2); Platelet Count Result 433 k/mm3 (150-375); Red Blood Count 2.92 M/mm3 (4.2-5.4); Red Cell Distribution Width 13.8 % (11.5-14.5)
[2021-08-15 15:17] LABS: Alanine Aminotransferase 35 U/L (4-35); Alkaline Phosphatase 47 U/L (38-126); Anion Gap 8 mmol/L (8-16); Aspartate Amino Transferase 28 U/L (14-36); Bilirubin,Total 0.5 mg/dL (0.2-1.3); Blood Urea Nitrogen 13 mg/dL (7-17); Calcium 8.6 mg/dL (8.4-10.2); Carbon Dioxide 24 mmol/L (22-30); Chloride 105 mmol/L (98-107); Estimated CRCL calculation 169 ml/min; Estimated Glomerular Filt Rate > 60; Glucose 203 mg/dL (65-110); Lipase 66 U/L (23-300); Sodium 137 mmol/L (137-145)
[2021-08-15 17:05] LABS: Add Urine Microscopic? YES; Appearance Urine Cloudy (Clear); Bacteria Urine Trace /hpf; Bilirubin Urine Negative (Negative); Blood Urine Negative (Negative); Color Urine Yellow (Yellow); Glucose Urine UA 1+ mg/dL (Negative); Ketones Urine 1+ mg/dL (Negative); Leukocyte Esterase Ur Negative LEU/UL (Negative); Mucus Urine Moderate /lpf; Nitrate Urine Negative (Negative); Protein Urine Negative (Negative); RBC Urine 0-2 /hpf (0-2); Specific Grav Ur 1.019 (1.001-1.035); Squamous Epithelial Cell Urine Moderate /hpf (Few); Urobilinogen Urine Negative mg/dL (<2.0); WBC Urine 0-3 /hpf
[2021-08-15] MEDS: SODIUM CHLORIDE 0.9% IV 1,000 ML 999 ML IV CONT (17:16)
[2021-08-15] MEDS: KETOROLAC 30 MG/ML VIAL (*BKC) IV PUSH (17:17)
[2021-08-15] MEDS: METOCLOPRAMIDE HCL INJ 10 MG/2 ML VIAL IV PUSH (17:17)
[2021-08-15] MEDS: diphenhydrAMINE HCl INJ 50 MG/ML VIAL 25 MG IV PUSH (17:17)
--- NOTE | 2021-08-15 19:40 | ED.GENADULT ---
HPI - General Adult General Chief complaint: Unspecified Stated complaint: post op complications - abd surgery Time Seen by Provider: 08/15/21 16:30 History of Present Illness HPI narrative: Patient is a 40-year-old female who presents ER with headache. Ongoing for couple of days. Associate with nausea and vomiting. Endorses photophobia. No history of migraine. No thunderclap. No fevers or chills or sweats. Recently postop from gynecologic surgery. Had a postop appointment today and sutures are healing well. No fevers or chills or sweats. No neck stiffness. No upper or lower extremity weakness or numbness. Related Data Home Medications Medication Instructions Recorded Confirmed Dayvigo 5 mg PO HS 07/30/21 08/05/21 Ozempic 1 mg SUBCUT WEEKLY 07/30/21 08/05/21 atorvastatin 10 mg PO DAILY 07/30/21 08/05/21 benzonatate 100 mg PO HS 07/30/21 08/05/21 buspirone 10 mg PO BID 07/30/21 08/05/21 ergocalciferol (vitamin D2) 1,250 mcg PO WEEKLY 07/30/21 08/05/21 [Vitamin D2] escitalopram oxalate [Lexapro] 5 mg PO DAILY 07/30/21 08/05/21 ferrous sulfate 325 mg PO DAILY 07/30/21 08/05/21 glipizide 5 mg PO TID 07/30/21 08/05/21 levothyroxine 25 mcg PO DAILY 07/30/21 08/05/21 lisinopril 20 mg PO DAILY 07/30/21 08/05/21 metformin 1,000 mg PO BID 07/30/21 08/05/21 Allergies Allergy/AdvReac Type Severity Reaction Status Date / Time erythromycin base Allergy Unknown ASSUMING Verified 08/15/21 10:24 HIVES A KID Penicillins Allergy Unknown ASSUMING Verified 08/15/21 10:24 HIVES A KID Review of Systems Review of Systems: All systems reviewed & are unremarkable except as noted in HPI and below Constitutional: Constitutional: Denies chills, Denies fever(s) and Reports headache(s) Eyes: Eyes: Reports photophobia Respiratory: Respiratory: Denies cough and Denies dyspnea Gastrointestinal: Gastrointestinal: Denies abdominal pain, Denies diarrhea, Reports nausea and Reports vomiting Neurologic: Denies dizziness, Reports headache(s), Denies focal weakness and Denies numbness PMFSH Past Medical History Medical History Anxiety Depression High blood pressure History of diabetes mellitus Hyperlipidemia Thyroid disease Surgical History Surgical History H/O gynecological procedure laparoscopic Novasure uterine ablation, laparoscopy, T/L - menometrorrhagia, dysmenorrhea, undesired fertility History of section History of dilation and curettage History of hysterectomy History of tonsillectomy Family History Family History Other Heart disease Social History Social History Smoking status: Never smoker Alcohol intake: never Substance use: never Substance use type: does not use Gender identity (if verbalized by the patient): Female Spiritual care concerns: No Exam Narrative: GENERAL: Uncomfortable-appearing, well-nourished, and in no acute distress. HEAD: Normocephalic, atraumatic. CHEST: Clear to auscultation. No respiratory distress. HEART: Regular rate and rhythm. Normal peripheral pulses. ABDOMEN: Soft, nontender, nondistended. EXTREMITIES: Normal range of motion. No edema. SKIN: Warm, dry, no rash. NEURO: No focal deficits. Clear speech. Alert and oriented x3. PSYCH: Normal mood and affect. Course Course Emergency Course: Symptoms resolved with Toradol/Reglan/Benadryl/IV fluid. Discharge home. Vital Signs Vital signs: Vital Signs Temperature 98.2 F 08/15/21 14:50 Pulse Rate 92 08/15/21 14:50 Respiratory Rate 19 08/15/21 14:50 Blood Pressure 133/65 08/15/21 14:50 Pulse Oximetry 100 08/15/21 14:50 Temperature 98.2 F 08/15/21 17:47 Pulse Rate 92 08/15/21 18:16 Respiratory Rate 24 H 08/15/21 18:16 Blood Pressure 136/
== END 2021-08-15 20:22 | disposition home or self-care (01) ==
PROVIDERS: Emergency Medicine; Emergency Provider Emergency Medicine; PCP Nurse Practitioner Adult Health
DX: R51.9 Headache, unspecified (principal); I10 Essential (primary) hypertension; E11.9 Type 2 diabetes mellitus without complications; E78.5 Hyperlipidemia, unspecified; E07.9 Disorder of thyroid, unspecified; F41.9 Anxiety disorder, unspecified; F32.A Depression, unspecified; Z79.899 Other long term (current) drug therapy; Z79.84 Long term (current) use of oral hypoglycemic drugs
CPT/HCPCS: 36415; 80053; 81001; 83690; 85025; 96361; 96374; 96375; 99284; J1200; J1885; J2765; J7030

== ENCOUNTER 2022-06-26 20:53 | Emergency (ER) | payer OTHER, SELFPAY ==
[2022-06-26 21:31] VITALS: BP 125/94; PULSE 110; RESP 18; TEMP 36.8; O2SAT 99
[2022-06-26 23:11] VITALS: BP 150/94; PULSE 98; RESP 18; O2SAT 100
--- NOTE | 2022-06-27 00:04 | PC.NURSE ---
patient states wait is too long and left
== END 2022-06-27 00:04 | disposition left against medical advice (07) ==
LOC: ANHED 06-27 00:11
PROVIDERS: PCP Nurse Practitioner Family
DX: R11.2 Nausea with vomiting, unspecified (principal)
CPT/HCPCS: 99199

== ENCOUNTER 2022-12-12 17:55 | Emergency (ER) | payer OTHER, SELFPAY ==
[2022-12-12 18:00] VITALS: BP 126/76; PULSE 91; RESP 16; TEMP 36.4; O2SAT 99
--- NOTE | 2022-12-12 18:04 | ECG_ITS ---
Measurements Intervals [place] Rate: 86 P: 47 NH: 141 QRS: 92 QRSD: 85 T: 51 QT: 362 QTc: 435 Interpretive Statements SINUS RHYTHM BORDERLINE RIGHT AXIS DEVIATION [QRS AXIS > 90] COMPARED TO ECG 08/01/2021 07:54:39 NO SIGNIFICANT CHANGES Electronically Signed On 12-13-2022 11:34:42 CDT by Nelly Gilmore MD
--- NOTE | 2022-12-12 19:39 | PC.NURSE ---
patient came to desk and stated she was going to follow up with PMD. patient alert and oriented x4.
== END 2022-12-12 19:39 | disposition left against medical advice (07) ==
PROVIDERS: PCP Nurse Practitioner Family
DX: R20.2 Paresthesia of skin (principal)
CPT/HCPCS: 93005; 99199

== ENCOUNTER 2024-07-20 20:25 | Observation (INO) | payer OTHER, SELFPAY ==
--- NOTE | ~2024-07-20 | NM_ITS ---
EXAMINATION: NM clem stress w perfusion DATE: 07/21/2024 12:59 INDICATION: Chest pain TECHNIQUE: Rest images were obtained following intravenous administration of 10.8 mCi Tc99m tetrofosm in (Myoview). The patient was infused intravenously with Lexiscan (Regadenoson). Then, 34.4 mCi Tc99m tetrofosmin (Myoview) was administered intravenously, and stress images were obtained. Data was jose nstructed into short axis and horizontal and vertical long axis SPECT images. Gated SPECT images were also obtained. COMPARISON: None. FINDINGS: There is no definite reversible or fixed perfusion abnormality to suggest ischemia or infar ction. There is normal left ventricular chamber size, wall motion and ejection fraction. Left ventr icular ejection fraction measures >70%. IMPRESSION: 1. Normal myocardial perfusion at rest and during stress. 2. Left ventricular ejection fraction measuring >70%. Reviewed, dictated and finalized at location A.
--- NOTE | ~2024-07-20 | XR_ITS ---
Clinical Indication: Chest tightness PA and lateral views of the chest: Comparison: None Findings: The lungs are clear, without evidence of focal consolidation or pleural effusion. Cardiome diastinal silhouette is within normal limits. Bones and soft tissues are unremarkable. Impression: Normal chest. Reviewed, dictated and finalized at location . Impression: Normal chest.
--- NOTE | 2024-07-20 20:26 | ECG_ITS ---
Test Date: 2024-07-20 20:39:13 Measurements Intervals [place] Rate: 94 P: 126 VT: 142 QRS: 145 QRSD: 91 T: -34 QT: 345 QTc: 432 Interpretive Statements SINUS RHYTHM BORDERLINE ST-T WAVE ABNORMALITY- INFERIOR LEADS BASELINE WANDER- I, II, III BORDERLINE ECG No previous ECG available for comparison Electronically Signed On 07-21-2024 05:05:14 CDT by Piero Elizondo D.O.
--- OUTSIDE RECORDS SUMMARY | 2024-07-20 20:27 | XMS_ITS | CONTINUITY OF CARE DOCUMENT ---
Author Name manuelito billings Address Unknown Organization [facility] Address [address] [place] [address] Phone [phone] Care Team Providers Care Electronic Scale Subassembler Name Role Phone Paramjit Richards MD Unavailable [phone] CHARLOTTE NICOLAS Unavailable CHARLOTTE NICOLAS Unavailable [phone] PROBLEMS Condition Status Date Provider Notes Family History of CVA or Stroke: active ? Ish Richards MD Family History of Hypertension: active ? Alphonse Richards MD Palpitations active Paramjit Richards MD Diabetes, Type 2 active Paramjit Richards MD Hypothyroidism active Paramjit Richards MD HTN essential active Paramjit Richards MD Hypertension active ? Paramjit Richards MD ENCOUNTERS Date Type Provider Location Encounter Diag nosis - In-person encounter Office Visit Paramjit Richards MD [place] Office - In-person encounter Office Visit Paramjit Richards MD [place] Office Family History of CVA or Stroke:Family History of Hypertension:PalpitationsDia betes, Type 2HypothyroidismHTN essentialHypertension VITAL SIGNS Date Observation Value Provider Body Mass Index (Ratio) 39.75 kg/m2 Alphonse Richards MD oxygen saturation, oximetry 98 % Bria Wright respiratory rate E&M 16 /min Bria Wright pulse rate 91 /min Bria bear blood pressure, cuff size large Cy graham Wright blood pressure, diastolic 70 mm[Hg] Gen Wright blood pressure, systolic 130 mm[Hg] Leanna Wright weight E&M 231.6 [lb_av] Bria james height E&M 64 [in_i] Bria bear blood pressure, diastolic 80 mm[Hg] Br boni Gao blood pressure, systolic 120 mm[Hg] Bra viktoria Gao Body Mass Index (Ratio) 40.20 kg/m2 Alphonse Richards MD blood pressure, resting Yes Denisse Napoles blood pressure, diastolic 78 mm[Hg] James Napoles blood pressure, systolic 117 mm[Hg] Dea Napoles oxygen saturation, oximetry 98 % Sal[place] Napoles respiratory rate E&M 18 /min Faviola Napoles pulse rate 89 /min [place] bonds weight E&M 234.2 [lb_av] [place] perez height E&M 64 [in_i] [place] bonds ALLERGIES Allergy Name Onset Date Reaction Criticality Status AMOXICILLIN Low Criticality active PENICILLIN Low Criticality active HISTORY OF MEDICATION USE Medication Status Instructions Dates Provider Indications Com ments CINNAMON CAPSULE active 1 tab once daily James Napoles LEVOTHYROXINE SODIUM 25 MCG ORAL TABLET active 1 tab once daily [place] Napoles VICTOZA SOLUTION PEN-INJECTOR active 1.8 mcg once daily Salinas Napoles ATORVASTATIN CALCIUM 10 MG ORAL TABLET active 1 tab once daily Salinas Napoles BUSPIRONE HCL TABLET active 1 tab twice daily Salinas Napoles LISINOPRIL 5 MG ORAL TABLET active 1/2 tab in the evening Salinas Napoles METFORMIN HCL 1000 MG ORAL TABLET active 1 tab twice daily Salinas Napoles SOCIAL HISTORY Date Observation Value Provider social history E&M Marital Statu s: C hildren: 3 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 Paramjit Richards MD social history reviewed E&M revi ewed - no changes required Paramjit Richards MD Surgical History of - Tonsillectomy Surgical History of - Tonsillectomy Paramjit Richards MD smoking status Never smoker [place] Jha FUNCTIONAL STATUS Date Observation Value Provider periodic limb movement index absent (0) Ruthy Myers MD FAMILY HISTORY Family Member Condition Father Family History of Co ronary Artery Disease: Father Family History of Hy pertension: Father Family History of Di abetes: Mother Family History of Di abetes: Mother Family History of CV A or Stroke: INSURANCE PROVIDERS Payer name Policy type / Coverage type [place] [employer] [facility] Care Thread [id number] ADVANCE DIRECTIVES Name Date DISCUSSED - NO DECISION MADE TREATMENT PLAN Date Name Performer Cardiology Follow up Paramjit quintanilla MD Cardiology Follow up Paramjit quintanilla MD Cardiology Follow up Paramjit quintanilla MD Cardiology Follow up :All tests normal. F/U with me as needed. No new medication recommendations. Paramjit Richards MD Cardiology Paramjit Richards MD Cardiology Paramjit Richards MD Cardiology Paramjit Richards MD Cardiology Paramjit Richards MD Date Name STR - Routine Complete Echo Mobile Cardiac Tele HISTORY OF PROCEDURES Procedure Date Procedure Name Provider Procedure Notes S tatus Stress EKG Ruthy Myers MD completed Event Monitor Paramjit Richards MD compl eted EKG Paramjit Richards MD complete d
--- OUTSIDE RECORDS SUMMARY | 2024-07-20 20:27 | XMS_ITS | Encounter Summary ---
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 Gender Identity Not on file Sexual Orientation Not on file documented as of this encounter Plan of Treatment Upcoming Encounters Date Type Department Care Team (Late Contact Info) Description 02/22/2025 7:30 AM 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 SPECIALIST Office Visit [facility] Primary [facility] [place] [address] [place] [address] Prasanna Thao Jr., DO [address] [place] [address] documented as of this encounter Visit Diagnoses Not on filedocumented in this encounter Care Teams Room Service Manager Relationship Specialty Start Date End Date Prasanna Thao Jr., DO [address] [place] [address] PCP - General Internal Medicine 02/26/23 documented as of this encounter
--- OUTSIDE RECORDS SUMMARY | 2024-07-20 20:27 | XMS_ITS | Encounter Summary ---
Author Organization [facility] Address [address] [place] [id number] Care Team Providers Care Substitute Nurse Name Role Phone Keesha Bullock DO, Frederick H Primary Care Provider Reason for Visit * Reason Onset Date Comments Praveena Dolly Pusher 07/20/2024 Encounter Details Date Type Department Care Team (Late st Contact Info) Description 07/20/[address] [address] Julian Estevez, RN Praveena Dolly Pusher Social History Tobacco Use Types Packs/Day Years Used Date Smoking Tobacco: Never Smokeless Tobacco: Never Alcohol Use Standard Drinks/Week Comments Not Currently 0 (1 standard drink = 0.6 oz pur e alcohol) Feeling Safe Answer Date Recorded Are you in a relationship wi th someone who hurts you emotionally and/or physically? No 04/16/2023 Comments No Sex and Gender Information Value Date Recorded Sex Assigned at Not on file Legal Sex Female 3:20 AM MEDICAL RESEARCH ASSISTANT Gender Identity Not on file Sexual Orientation Not on file documented as of this encounter Miscellaneous Notes * Telephone Encounter - Julian Estevez, RN - 07/20/2024 7:49 PM CDT PRAVEENA V-SHARON FONTANEZ PUNCH MOLDER DOCUMENTATION Service Line: Praveena Dolly Pusher at 7:55 PM Chief Complaint: Chest pain and rapid heart rate PCP: Prasanna Thao Jr., DO Patient Statement/HPI/Review of Systems: 43-year-old female with past medical history of type 2 diabetes mellitus, hypertension, hyperlipidemia. Patient calling to report experiencing intermittent chest pain today described as chest tightness. States she feels as though she cannot take a deep breath. Reports squeezing or pressure in the center of her chest which last for a few minutes and then goes away only to return a few minutes later. Reports feeling heart rate increased today. States heart rate today has been between 100-160 which was checked by Apple Watch. Manual check of heart rate while patient is laying down currently is 100. Patient reports currentlynot feeling the chest pressure. Vitals and Assessment: Patient is alert and oriented x 4, answers all questions appropriately, speaking in clear complete sentences. Plan: Consulted with ED Dr. Wick. Given patient history with reported symptoms, MOC advised patient to proceed to ED for in person evaluation and further management. Patient verbalized understanding and agreed with plan Discussed when to seek treatment Understanding of discussion voiced Instructed to call with any concerns. Note routed to primary care office pool. Visit was completed by phone unless otherwise noted with video/screen capture within the note. Julian Estevez RN [facility] documented in this encounter Plan of Treatment Upcoming Encounters Date Type Department Care Team (Late st Contact Info) Description 02/22/2025 7:30 AM MEDICAL RESEARCH ASSISTANT Office Visit [facility] [place] [address] [place] [address] Prasanna Thao Jr., DO [address] [place] [address] documented as of this encounter Visit Diagnoses Not on filedocumented in this encounter Care Teams Substitute Nurse Relationship Specialty Start Date End Date Prasanna Thao Jr., DO [address] [place] [address] PCP - General Internal Medicine 02/26/23 documented as of this encounter
--- OUTSIDE RECORDS SUMMARY | 2024-07-20 20:27 | XMS_ITS | Clinical Summary ---
Author Organization [facility] Address [address] [place] [address] Phone Care Team Providers Care Senior Drupal Developer Name Role Phone Darlene Solomon RASHEL Primary Care Provider [phone]- [phone] Allergies Active Allergy Reactions Criticality Noted Date Comments Penicillins Hives 10/27/2020 Medications metFORMIN (GLUCOPHAGE) 1000 MG Tablet Take 1,000 mg by mouth 2 times daily (with meals). Active LISINOPRIL PO Take by mouth. A ctive LEVOTHYROXINE SODIUM PO Take 25 mcg by mouth daily. Active busPIRone (BUSPAR) 10 MG Tablet Take 10 mg by mouth 2 times daily. Active glipiZIDE (GLUCOTROL) 5 MG Tablet Take 5 mg by mouth 3 times daily. Active atorvastatin (LIPITOR) 10 MG Tablet Take 10 mg by mouth daily. Active ESCITALOPRAM OXALATE PO Take by mouth. Acti ve Semaglutide (OZEMPIC, 1 MG/DOSE, SC) 1 mg by Subcutaneous route once a week. Active Social History Tobacco Use Types Packs/Day Years Used Date Smoking Tobacco: Never Alcohol Use Standard Drinks/Week Comments Never 0 (1 standard drink = 0.6 oz pur e alcohol) Comments No Sex and Gender Information Value Date Recorded Sex Assigned at Not on file Legal Sex Female 1:43 PM CDT Gender Identity Not on file Sexual Orientation Not on file Last Filed Vital Signs Vital Sign Reading Time Taken Comments Blood Pressure 108/57 10/27/2020 3:00 PM CDT Pulse 80 10/27/2020 3:00 PM CDT Temperature - - Respiratory Rate 18 10/27/2020 3:00 PM CDT Oxygen Saturation 99% 10/27/2020 2:45 PM CDT Inhaled Oxygen Concentration - - Weight - - Height - - Body Mass Index - - Plan of Treatment Health Maintenance Due Date Last Done Comments Hepatitis C Virus (HCV) Screening 1980 Hepatitis B Immunization (1 of 3 - 19+ 3-dose series) 1997 Colonoscopy 11/17/2023 Colorectal Cancer Screening 11/17/2023 Influenza Immunization (#1) 12/20/202301/18, 02/08/2019, 01/17/2019, Additional history exists SARS-COV-2 Immunization ( season) 2023 02/25/2021, 06/01/2020, 05/03/2020, Additional history exists Respiratory Syncytial Virus (RSV) Immunization (Adult) (1 - 1-dose 75+ series) 2053 DTaP/Tdap/Td Immunization Discontinued 04/20/2008 TdaP Immunization Completed 04/20/2008 Meningococcal Immunization (ACWY) Aged Out No longer eligible based on patient's age to complete this topic Pneumococcal Immunization Combined Aged Out No longer eligible based on patient's age to complete this topic Rotavirus Immunization Aged Out No lo nger eligible based on patient's age to complete this topic Insurance Care Teams Senior Drupal Developer Relationship Specialty Start Date End Date Darlene Solomon APRN PCP - General Advanced Practice Nurse 10/27/20
--- OUTSIDE RECORDS SUMMARY | 2024-07-20 20:27 | XMS_ITS | Clinical Summary ---
Author Organization [facility] Address [address] [place] [address] Phone Care Team Providers Care Roof Bolter Operator Name Role Phone Keesha Bullock DO, Frederick H Primary Care Provider Allergies Active Allergy Reactions Criticality Noted Date Comments Empagliflozin Other (See Comments) 04/07/2023 Yeast infections Penicillins Hives High 09/08/2017 Medications flash glucose sensor (FreeStyle Sunny 2 Sensor) KitIndications:Type 2 diabetes mellitus with hyperglycemia, without long-term current use of insulin (CMS/[facility]) Use as directed every 2 weeks. 2 Kit 12 024 Active escitalopram oxalate (LEXAPRO) 20 mg tabletIndications:MICHELINE (generalized anxiety disorder) take 1 tablet by mouth every day 100 Tablet 3 024 Active busPIRone (BUSPAR) 10 mg tabletIndications:MICHELINE (generalized anxiety disorder) Take 1 Tablet (10 mg) by mouth 3 times daily. 300 Tablet 2 024 Active glipiZIDE (GLUCOTROL) 5 mg tabletIndications:Type 2 diabetes mellitus with hyperglycemia, without long-term current use of insulin (CMS/HCC) Take 1 Tablet (5 mg) by mouth 3 times daily. 300 Tablet 2 024 Active lisinopriL (PRINIVIL) 10 mg tabletIndications:Type 2 diabetes mellitus with hyperglycemia, without long-term current use of insulin (CMS/HCC) Take 1 Tablet (10 mg) by mouth daily. 100 Tablet 2 Active atorvastatin (LIPITOR) 10 mg tabletIndications:Pure hypercholesterolemia Take 1 Tablet (10 mg) by mouth daily. 90 Tablet 3 024 Active Cinnamon Bark (Cinnamon) 500 mg Capsule CINNAMON CAPSULE Act familia clotrimazole-betamethas one (LOTRISONE) 1-0.05 % Cream by See Admin Instructions route see administration instructions. Active levothyroxine 25 mcg tabletIndications:Hypot hyroidism, unspecified type Take 1 Tablet (25 mcg) by mouth daily. 90 Tablet 3 024 Active butalbital-acetaminophe n-caffeine (FIORICET) 50-325-40 mg tabletIndications:Migra ine without aura and without status migrainosus, not intractable Take 1 Tablet by mouth every 6 hours as needed for Migraine. 15 Tablet 3 024 Active rimegepant (Nurtec ODT) 75 mg Tablet, Rapid DissolveIndications:Bruno jimmy without aura and without status migrainosus, not intractable Take 1 Tablet (75 mg) by mouth 1 time daily as needed for Other (See Comment) (migraine). 15 Tablet 11 024 Active tirzepatide (Mounjaro) 12.5 mg/0.5 mL Pen InjectorIndications:Typ e 2 diabetes mellitus with hyperglycemia, without long-term current use of insulin (CMS/HCC) Inject 0.5 mL (12.5 mg) by subcutaneous injection every 7 days. 2 mL 11 Active metFORMIN (GLUCOPHAGE XR) 500 mg Extended Release 24 hour tabletIndications:Type 2 diabetes mellitus with hyperglycemia, without long-term current use of insulin (CMS/HCC) Take 2 Tablets (1,000 mg) by mouth 2 times daily with meals. 400 Tablet 3 Active zolpidem (AMBIEN) 10 mg tabletIndications:Chron ic insomnia TAKE 1 TABLET BY MOUTH NIGHTLY NEEDED FOR INSOMNIA. 30 Tablet 5 025 Active Active Problems Problem Noted Date Diagnosed Date Migraine without aura and wi thout status migrainosus, not intractable 08/07/2023 Type 2 diabetes mellitus wit h hyperglycemia, without long-term current use of insulin 04/07/2023 HTN (hypertension), benign 04/07/2023 HLD (hyperlipidemia) 04/07/2023 Chronic insomnia 04/07/2023 Hypothyroidism 04/07/2023 Iron deficiency without anemia 04/07/2023 Severe obesity (BMI 35.0-39.9) with comorbidity 04/07/2023 Encounters Date Type Department Care Team Description 07/20/2024 Telephone [facility] [address] [place] [address] Julian Estevez RN [employer] Mult[employer] Instructional Designer 07/06/2024 External Device Data [facility] ABSTRACTION Provider, Abstract 06/25/2024 External Device Data [facility] ABSTRACTION Provider, Abstract 06/24/2024 External Device Data [facility] ABSTRACTION Provider, Abstract 06/22/2024 External Device Data [facility] ABSTRACTION Provider, Abstract 06/18/2024 Refill [facility] Primary Care [facility] [address] [place] [address] Prasanna Thao Jr., DO Chronic insomnia 05/27/2024 External Device Data [facility] ABSTRACTION Provider, Abstract 05/24/2024 External Device Data [facility] ABSTRACTION Provider, Abstract 05/17/2024 External Device Data [facility] ABSTRACTION Provider, Abstract 04/26/2024 External Device Data [facility] ABSTRACTION Provider, Abstract from Last 3 Months Immunizations Immunization Administration Dates Next Due (GARDASIL 9)(9-45 YRS) HUMAN PAPILLOMAVIRUS VACCINE, TYPES 6, 11, 16, 18, 31, 33, 45, 52, 58, NONAVALENT (9VHPV), 2 OR 3 DOSE, IM 05/05/2022 (PREVNAR 20)(6 WKS UP) PNEUM OCOCCAL CONJUGATE VACCINE 20-VALENT (PCV20), POLYSACCHARIDE DNU554 CONJUGATE, ADJUVANT 0.5 ML (PF) IM 08/07/2023 Influenza Seasonal Unspecified Formulation IM ,12/27/2021 Family History Medical History Relation Name Comments Diabetes Brother Diabetes Father Heart Disease Father Diabetes Mother Colon Cancer Other paternal aunt Relation Name Status Comments Brother Father Alive Mother Alive Other Social History Tobacco Use Types Packs/Day Years Used Date Smoking Tobacco: Never Smokeless Tobacco: Never Tobacco Cessation:Counseling Given: Not Answered Alcohol Use Standard Drinks/Week Comments Not Currently 0 (1 standard drink = 0.6 oz pur e alcohol) Feeling Safe Answer Date Recorded Are you in a relationship wi th someone who hurts you emotionally and/or physically? No 04/16/2023 Comments No Sex and Gender Information Value Date Recorded Sex Assigned at Not on file Legal Sex Female 3:20 AM LASER SPECIALIST Gender Identity Not on file Sexual Orientation Not on file Last Filed Vital Signs Vital Sign Reading Time Taken Comments Blood Pressure 124/60 02/19/2024 7:30 AM CDT Pulse 95 02/19/2024 7:30 AM CDT Temperature 36.4 C (97.6 F) 02/19/2024 7:30 AM CDT Respiratory Rate 20 02/19/2024 7:30 AM CDT Oxygen Saturation 98% 02/19/2024 7:30 AM CDT Inhaled Oxygen Concentration - - Weight 95.3 kg (210 lb 3.2 oz) 02/19/2024 7:30 A M CDT Height 162.6 cm (5' 4 ) 02/19/2024 7:30 AM CDT Body Mass Index 36.08 02/19/2024 7:30 AM CDT Plan of Treatment Upcoming Encounters Date Type Department Care Team (Late st Contact Info) Description 02/22/2025 7:30 AM LASER SPECIALIST Office Visit [facility] Primary Care [place] [address] [place] [address] Prasanna Thao Jr., DO [address] [place] [address] Health Maintenance Due Date Last Done Comments DIABETES ANNUAL FOOT EXAM 1996 DTAP/TDAP/TD VACCINES (1 - Tdap) 1997 HEPATITIS B VACCINES (1 of 3 - 19+ 3-dose series) 1997 HPV/Cotest (21-29) 11/17/1999 CERVICAL CANCER SCREENING 2008 HPV/Cotest (30-65) 2008 PAP SMEAR 2008 HPV VACCINES (2 - 3-dose SCD M series) 06/02/2022 05/05/2022 FIT-DNA Q 3 years 11/17/2023 FIT/FOBT Q 1 year 11/17/2023 Flex Sig/CT Colonography Q 5 years 11/17/2023 INFLUENZA VACCINE (#1) 2023 , 12/17/2022, 12/27/2021 UPPER GI ENDOSCOPY 04/16/2024 04/16/2023 BREAST CANCER SCREENING 05/13/2024 05/13/2023 DIABETES HBA1C Q 6 MONTHS 08/15/20242023, 08/06/2023, 03/31/2023, Additional history exists DIABETES MICROALBUMIN ANNUAL SCREEN 02/14/2025 02/15/2024 DIABETES: A1C (Auto Order) 02/14/202502/14, 08/06/2023, 03/31/2023, Additional history exists LDL CHOLESTEROL ANNUAL 02/14/2025 02/15/2024, 2022 DIABETES ANNUAL RETINAL EXAM 03/09/2025 03/09/2024 COLORECTAL SCREENING 04/16/2033 04/16/2023, 04/16/20 Colorectal Cancer Screening 04/16/2033 Procedures Procedure Name Priority Date/Time Associated Diagnosis Comments DIABETES EYE EXAM Routine 03/09/2024 3:03 PM LASER SPECIALIST MICROALBUMIN/CREATI NINE RATIO, RANDOM UR Routine 02/15/2024 7:13 AM CDT Type 2 diabetes mellitus with hyperglycemia, without long-term current use of insulin ([facility]/HCC) LIPID PANEL Routine 02/15/2024 7:10 AM CDT Hyperlipidemia, unspecified hyperlipidemia type HEMOGLOBIN A1C Routine 02/15/2024 7:10 AM CDT Type 2 diabetes mellitus with hyperglycemia, without long-term current use of insulin (CMS/HCC) MAMMO 3D DARREL SCREEN BILAT W OR WO CAD Routine 05/13/2023 8:12 AM LASER SPECIALIST Encounter for screening mammogram for malignant neoplasm of breast COLONOSCOPY REPORT 04/16/2023 8: 53 AM LASER SPECIALIST from Last 3 Months or Most Recently Relevant to Health Maintenance Results * DIABETES EYE EXAM (03/09/2024 3:03 PM LASER SPECIALIST) us Abstract Provider HEALTH MAINTENANCE Edited Resu lt - Final * MICROALBUMIN/CREATININE RATIO, RANDOM UR (02/15/2024 7:13 AM CDT) Creatinine, Urine 119 20 - 275 mg/dL [facility] MICROALBUMIN, URINE 1.4 See Note: mg/dL [facility] Comment: Reference Range: Reference Range Not established MICROALBUMIN/CREAT RATIO, UR 12 <30 mg/g creat [facility] Comment: The ADA defines abnormalities in albumin excretion as follows: Albuminuria Category Result (mg/g creatinine) Normal to Mildly increased <30 Moderately increased 30-299 Severely increased > OR = 300 The ADA recommends that at least two of three specimens collected within a 3-6 month period be abnormal before considering a patient to be within a diagnostic category. FASTING:YES FASTING: YES Test Performed at: [facility] [address] [place] [address] Siomara Betancourt MD Urine URINE SPECIMEN OBTAINED BY CLEAN CATCH PROCEDURE / Unknown 02/15/2024 7:13 AM CDT 02/15/2024 7:14 AM CDT Prasanna Thao Jr., DO URINE ORDERABLES Final Result [facility] [phone] [facility] [address] [place] [address] * (ABNORMAL) HEMOGLOBIN A1C (02/15/2024 7:10 AM CDT) HEMOGLOBIN A1C 7.7(H) <5.7 % of total Hgb [facility] Comment: For someone without known diabetes, a hemoglobin A1c value of 6.5% or greater indicates that they may have diabetes and this should be confirmed with a follow-up test. For someone with known diabetes, a value <7% indicates that their diabetes is well controlled and a value greater than or equal to 7% indicates suboptimal control. A1c targets should be individualized based on duration of diabetes, age, comorbid conditions, and other considerations. Currently, no consensus exists regarding use of hemoglobin A1c for diagnosis of diabetes for children. ESTIMATED AVERAGE GLUCOSE (MG/DL) 174 mg/dL [facility] ESTIMATED AVERAGE GLUCOSE (MMOL/L) 9.7 mmol/L [facility] Comment: FASTING:YES FASTING: YES Test Performed at: [facility] [address] [place] [id number] Siomara Betancourt Blood 02/15/2024 7:10 AM CDT 02/15/2024 7:11 AM CDT us Prasanna Thao Jr., DO CHEMISTRY ORDERABLES F inal Result [facility] [phone] [facility] [address] [place] [address] * LIPID PANEL (02/15/2024 7:10 AM CDT) CHOLESTEROL 165 <200 mg/dL [facility] HDL 50 > OR = 50 mg/dL [facility] TRIGLYCERIDE 101 <150 mg/dL [facility] LDL CALCULATED 96 mg/dL (calc) [facility] Comment: Reference range: <100 Desirable range <100 mg/dL for primary prevention; <70 mg/dL for patients with CHD or diabetic patients with > or = 2 CHD risk factors. LDL-C is now calculated using the Sanjeev-Veronica calculation, which is a validated novel method providing better accuracy than the Friedewald equation in the estimation of LDL-C. Sanjeev MCMANUS et al. DORY. 2013;310(19): 0693-1266 (http://education.The Cloakroom.Playdek/faq/HYE289) CHOL/HDL RATIO 3.3 <5.0 (calc) [facility] NON-HDL CHOLESTEROL 115 <130 mg/dL (calc) [facility] Comment: For patients with diabetes plus 1 major ASCVD risk factor, treating to a non-HDL-C goal of <100 mg/dL (LDL-C of <70 mg/dL) is considered a therapeutic option. Test Performed at: [facility] [address] [place] [address] Siomara Zee Vo Blood 02/15/2024 7:10 AM CDT 02/15/2024 7:11 AM CDT us Prasanna Thao Jr., DO CHEMISTRY ORDERABLES F inal Result [facility] [phone] [facility] [address] [place], [place] [address] * MAMMO 3D DARREL SCREEN BILAT W OR WO CAD (05/13/2023 8:12 AM LASER SPECIALIST) Anatomical Region Laterality Modality Breast Bilateral Mammography 05/13/2023 8:13 AM LASER SPECIALIST Addenda Addendum by Cecile Almaguer MD on 05/28/2023 4:40 PM LASER SPECIALIST Addendum: The previous outside mammograms dated 08/07/2020 and 11/18/2018 were made available for comparison. There are scattered fibroglandular tissues bilaterally. No new mass, malignant calcification or architectural distortion is identified. CAD was used. IMPRESSION: No evidence of malignancy. RECOMMENDATIONS: Bilateral annual screening mammogram. BI-RADS Category 1. Negative. Impressions 05/13/2023 1:51 PM LASER SPECIALIST IMPRESSION: [facility] Radiology will request the patient's previous outside studies in order to assess for stability. An addendum will be provided after reviewing the outside exams. DICTATION LOCATION: [facility] Narrative 05/13/2023 1:51 PM LASER SPECIALIST BILATERAL FULL-FIELD DIGITAL SCREENING MAMMOGRAM WITH CAD AND TOMOGRAPHY DATE: 05/13/2023 8:12 AM HISTORY: Annual screening. TECHNIQUE: Low-dose full-field digital breast tomosynthesis examination was performed with 2D and 3D acquisitions. Examination is read in conjunction with computer aided detection. COMPARISON: None. BREAST COMPOSITION: Scattered fibroglandular densities FINDINGS: Previous exams are currently unavailable. The patient's outside studies will be requested in order to assess for stability. OVERALL FINAL ASSESSMENT: BI-RADS CATEGORY 0 - Incomplete, needs comparison to prior mammograms. us Prasanna Thao Jr., DO MAMMO ORDERABLES Edite d Result - Final * COLONOSCOPY REPORT (04/16/2023 8:53 AM LASER SPECIALIST) Narrative Procedure Note Julian Lee MD - 04/16/2023 8:53 AM CST [facility] Endoscopy Patient Name: Temi Smith Procedure Date: 04/16/2023 Date of : 1980 Attending MD: Julian Lee MD, Procedure: Colonoscopy Indications: Hematochezia, Iron deficiency Providers: Julian Lee MD Referring MD: Prasanna Thao Jr Medicines: Monitored Anesthesia Care Complications: No immediate complications. Procedure: Informed consent was obtained for the procedure, including moderate sedation after risks were discussed. Based on the pre-procedure assessment, including review of the patient's medical history, medications, allergies, and review of systems, the patient was deemed to be an appropriate candidate for sedation. A timeout was performed. Continuous ECG monitoring, pulse oximetry, blood pressure monitoring, and direct observation were performed. The Colonoscope was introduced through the anus and advanced to the terminal ileum. The colonoscopy was performed without difficulty. The patient tolerated the procedure well. The quality of the bowel preparation was adequate. The terminal ileum, ileocecal valve, appendiceal orifice, and rectum were photographed. Estimated Blood Loss: Estimated blood loss was minimal. Findings: Hemorrhoids were found on perianal exam. A few diverticula were found in the sigmoid colon. A 4 mm polyp was found in the descending colon. The polyp was sessile. The polyp was removed with a cold snare. Resection and retrieval were complete. Anal papilla(e) were hypertrophied. Internal hemorrhoids were found during retroflexion. The hemorrhoids were medium-sized. The terminal ileum appeared normal. Impression: - Hemorrhoids found on perianal exam. - Diverticulosis in the sigmoid colon. - One 4 mm polyp in the descending colon, removed with a cold snare. Resected and retrieved. - Anal papilla(e) were hypertrophied. - Internal hemorrhoids. Suspected source of intermittent hematochezia. - The examined portion of the ileum was normal. Recommendation: - Repeat colonoscopy in 5-10 years for surveillance based on pathology results. - Use fiber, for example Citrucel, Fibercon, Konsyl or Metamucil. Julian Lee MD 04/16/2023 8:52:47 AM This report has been signed electronically. Number of Addenda: [address]; [place] [address] Julian Lee MD GI PROCEDURE ORDERABL ES Final Result from Last 3 Months or Most Recently Relevant to Health Maintenance Insurance RX [employer] PLANS (INTERNAL) [facility] [employer] RX [employer] Commercial [[id number] RX [employer] Commercial [[id number] RX [employer] Commercial RX [employer] Commercial RX [employer] Commercial RX [facility] [employer] PPO Advance Directives For more information, please contact: [phone] * Full Code (Latest Code Status on File) Date Activated Date Inactivated Comments 04/16/2023 7:38 AM 04/16/2023 11:49 AM Care Teams Roof Bolter Operator Relationship Specialty Start Date End Date Prasanna Thao Jr., DO [address] [place] [address] PCP - General Internal Medicine 02/26/23
--- NOTE | 2024-07-20 20:36 | ED.CHESTPAIN ---
HPI - Chest Pain General Chief Complaint: Chest Pain Stated Complaint: elevated HR and chest pressure Time Seen by Provider: 07/20/24 20:35 Source: patient Related Data Allergies Allergy/AdvReac Type Severity Reaction Status Date / Time erythromycin base Allergy Unknown ASSUMING Verified 07/20/24 20:25 HIVES A KID Penicillins Allergy Unknown ASSUMING Verified 07/20/24 20:25 HIVES A KID amoxicillin AdvReac Unknown Unknown Verified 07/20/24 20:25 [facility] Past Medical History Medical History (Updated 07/20/24 @ 21:39 by Paco Villalta MD) BMI 37.0-37.9, adult Anemia BMI 38.0-38.9,adult Encounter to establish care Insomnia Diabetes mellitus Migraine Hypothyroid Hematoma of abdominal wall Depression Anxiety Hyperlipidemia Chronic pelvic pain in female Paratubal cyst Thyroid disease High blood pressure History of diabetes mellitus Surgical History Surgical History (Updated 04/29/22 @ 08:58 by Jaida Amos NP) S/P laparoscopic procedure History of tonsillectomy H/O gynecological procedure laparoscopic Novasure uterine ablation, laparoscopy, T/L - menometrorrhagia, dysmenorrhea, undesired fertility History of dilation and curettage History of section History of hysterectomy Family History Family History (Updated 04/29/22 @ 07:52 by Yani Amador [facility]) Father Diabetes mellitus Hypertension Heart disease Mother Diabetes mellitus Hypertension Cerebrovascular accident Depression Anxiety Sibling Depression Anxiety Diabetes mellitus Son Asthma Diabetes mellitus Depression Anxiety Grandparent Heart disease Diabetes mellitus Hypertension Grandparent Alcohol abuse Diabetes mellitus Hypertension Heart disease Social History Social History (Updated 08/26/22 @ 08:17 by Sera David MA) Smoking status: Never smoker Alcohol intake: never Substance use: never Substance use type: does not use Lack of Transportation: No Lack of Food: Never True Current Housing: I Have Housing Concerned About Future Housing: No Difficulty Paying Gas/Electric Bills: No Difficulty Paying for Meds: No Currently Unemployed: No Education: High School Diploma/GED Difficulty w/ Childcare or Family Care: No Living arrangements: with family Gender identity (if verbalized by the patient): Female Spiritual care concerns: No Course Vital Signs Vital signs: Vital Signs Temperature 37.2 C 07/20/24 20:42 Pulse Rate 88 07/20/24 20:42 Respiratory Rate 14 07/20/24 20:42 Blood Pressure 129/75 07/20/24 20:42 Pulse Oximetry 100 07/20/24 20:42 Temperature 37.2 C 07/20/24 20:42 Pulse Rate 88 07/20/24 20:42 Respiratory Rate 14 07/20/24 20:42 Blood Pressure 129/75 07/20/24 20:42 Pulse Oximetry 99 07/20/24 21:20 Oxygen Delivery Room Air 07/20/24 21:20 MDM - Chest Pain MDM Narrative Medical decision making narrative: PATIENT PRESENTS WITH CHEST TIGHTNESS, PALPITATION, LIGHTHEADEDNESS AND DIZZINESS VITAL SIGNS ARE STABLE PHYSICAL EXAMINATION UNREMARKABLE DIFFERENTIAL DIAGNOSIS ANXIETY LIKE SYMPTOMS, PALPITATION, ELECTROLYTE IMBALANCE, DEHYDRATION, LESS LIKELY CORONARY ARTERY DISEASE. BLOOD WORKUP TODAY INCLUDES CBC, CMP, TROPONIN, LIPASE SHOWED GLUCOSE 228 OTHERWISE INSIGNIFICANT ABNORMALITY CHEST X-RAY SHOWED NO ACUTE ABNORMALITY EKG ON ARRIVAL SHOWED JUNCTIONAL RHYTHM AT 94 BEATS PER MINUTE, LOOK YOU VOLTAGE QRS COMPLEXES, POOR R-WAVE PROGRESSION, SEPTAL MYOCARDIAL INFARCTION-SUSPECTED, OLD CARDIAC SCORE IS 4, PATIENT COMORBIDITIES ARE DIABETES, HYPERTENSION, HYPERLIPIDEMIA, FAMILY HISTORY OF CORONARY ARTERY DISEASE ALTHOUGH ANXIETY LIKE SYMPTOMS IS MY CONCERN. BECAUSE OF HER COMORBIDITIES HOSPITALIZATION 24 HOURS WOULD BE APPROPRIATE. Differential Diagnosis Differential diagnosis: Likely other ( ABOVE) Medical Records Data Attestation: I reviewed the patient's medical records. Lab Data Attestation: I reviewed the patient's lab results. 07/20/24 20:40 07/20/24 20:40 Labs: Lab Results 07/20/24 Range/Units 20:40 WBC 8.3 (4.5-10.0) K/mm3 RBC 4.15 L (4.2-5.4) M/mm3 Hgb 12.3 D (12.0-15.0) g/dL Hct 36.9 L (37.0-47.0) % MCV 88.9 (80-100) fl MCH 29.6 (26-34) pg MCHC 33.3 (32-36) g/dl RDW 13.0 (11.5-14.5) % Plt Count 347 (150-375) k/mm3 MPV 10.1 (7.4-10.4) fl Immature Gran % (Auto) 0.2 (0-0.5) % Neut % (Auto) 50.9 (45.5-73.1) % Lymph % (Auto) 40.9 (18.3-44.2) % [place] % (Auto) 4.9 (2.6-8.5) % Eos % (Auto) 2.9 (0-4.4) % Baso % (Auto) 0.2 (0.2-1.2) % Lymph # (Auto) 3.41 H (0.9-3.2) K/mm3 [place] # (Auto) 0.4 (0.1-0.6) K/mm3 Eos # (Auto) 0.2 (0-0.3) K/mm3 Baso # (Auto) 0.0 (0.0-0.1) K/mm3 Abs Immat Gran (auto) 0.02 (0.00-0.031) K/mm3 Absolute Neuts (auto) 4.2 (1.3-6.7) K/mm3 Absolute Nucleated RBC 0.000 (0.0-0.012) K/mm3 Nucleated RBC % 0.0 (0.0-0.2) % PT 11.8 (11.1-14.7) Seconds INR 0.8 APTT 26.7 (22.3-36.8) Seconds Sodium 136 L (137-145) mmol/L Potassium 4.0 (3.4-5.0) mmol/L Chloride 102 (98-107) mmol/L Carbon Dioxide 19 L (22-30) mmol/L Anion Gap 15 H (4-12) mmol/L BUN 14 (7-17) mg/dL Creatinine 0.76 (0.7-1.0) mg/dL Estim Creat Clear Calc 89 ml/min Estimated GFR > 60 (59 - ) Glucose 228 H (65-110) mg/dL Calcium 9.4 (8.4-10.2) mg/dL Total Bilirubin 0.4 (0.2-1.3) mg/dL AST 26 (14-36) U/L ALT 29 (6-35) U/L Alkaline Phosphatase 44 (38-126) U/L Troponin I < 0.012 (0.000-0.034) ng/mL Total Protein 7.0 (6.3-8.2) g/dL Albumin 4.8 (3.5-5.1) g/dL Lipase 229 (23-300) U/L Imaging Data Radiologist's impression: Impressions Chest X-Ray 07/20/24 21:27 Impression: Normal chest. ECG Data EKG #1: Attestation: I personally reviewed and interpreted this ECG as follows: Prior ECG tracings: available for review Interpretation: JUNCTIONAL RHYTHM AT 94 BEATS PER MINUTE, POOR R-WAVE PROGRESSION, SEPTAL MYOCARDIAL INFARCTION INDETERMINATE AGE, LOW-VOLTAGE QRS COMPLEX UNABLE TO COMPARE WITH OLD EKG, NOT AVAILABLE AT THIS TIME Critical Care Time Critical Care Time Critical Care Time: No Discharge Plan Discharge Patient Disposition: Still a Patient Instructions: Chest Pain (ED) Patient Language: Armenian Prescriptions: No Action buspirone 10 mg tablet 10 mg PO TID Qty: 270 3RF lisinopril 10 mg tablet 10 mg PO DAILY Qty: 90 3RF metformin 500 mg tablet extended release 24 hr 1,000 mg PO BID Qty: 360 3RF Nurtec ODT 75 mg tablet,disintegrating 75 mg PO .QOD Qty: 45 3RF atorvastatin 10 mg tablet 10 mg PO DAILY Qty: 90 3RF glipizide 5 mg tablet 5 mg PO TID Qty: 270 3RF acetaminophen 500 mg capsule 1,000 mg PO Q8H 10 Days Qty: 60 0RF escitalopram oxalate [Lexapro] 20 mg tablet 20 mg PO DAILY Qty: 90 3RF Ozempic 2 mg/dose (8 mg/3 mL) pen injector 2 mg subcut WEEKLY Qty: 3 11RF Trulicity 4.5 mg/0.5 mL pen injector 4.5 mg subcut WEEKLY Qty: 2 11RF zolpidem [Ambien] 10 mg tablet See Rx Instructions PO QHS PRN (Reason: insomnia) Qty: 30 5RF Rx Instructions: 1/2 - 1 tab orally every day at bedtime PRN levothyroxine 25 mcg tablet 25 mcg PO DAILY Qty: 90 3RF Follow-up/Referrals: Jaida Amos NP [Primary Care Provider] - Quality HEART score for chest pain patients History: moderately suspicious ECG: normal Age: > 45 and < 65 years Risk factors: > or = to 3 risk factors of atherosclerotic disease Troponin: < or = to 1x normal limit Heart score: 4
[2024-07-20 20:42] VITALS: BP 129/75; PULSE 88; RESP 14; TEMP 37.2; O2SAT 100
[2024-07-20 20:46] LABS: Basophils Percent Auto 0.2 % (0.2-1.2); Eosinophils Absolute Auto 0.2 K/mm3 (0-0.3); Eosinophils Percent Auto 2.9 % (0-4.4); Hematocrit 36.9 % (37.0-47.0); Hemoglobin 12.3 g/dL (12.0-15.0); Immature Granulocyte Absolute 0.02 K/mm3 (0.00-0.031); Immature Granulocyte Percent A 0.2 % (0-0.5); Lymphocytes Absolute Auto 3.41 K/mm3 (0.9-3.2); Lymphocytes Percent Auto 40.9 % (18.3-44.2); Mean Corpuscular HGB Conc 33.3 g/dl (32-36); Mean Corpuscular Hemoglobin 29.6 pg (26-34); Mean Corpuscular Volume 88.9 fl (80-100); Mean Platelet Volume 10.1 fl (7.4-10.4); Monocytes Absolute Auto 0.4 K/mm3 (0.1-0.6); Monocytes Percent Auto 4.9 % (2.6-8.5); Neutrophils Absolute Auto 4.2 K/mm3 (1.3-6.7); Neutrophils Percent Auto 50.9 % (45.5-73.1); Platelet Count Result 347 k/mm3 (150-375); Red Blood Count 4.15 M/mm3 (4.2-5.4); White Blood Count 8.3 K/mm3 (4.5-10.0)
--- OUTSIDE RECORDS SUMMARY | 2024-07-20 20:49 | XMS_ITS | Encounter Summary ---
Author Organization [employer] Address [address] [place] [address] Care Team Providers Care Investor Relations Director Name Role Phone Keesha Bullock DO, Frederick H Primary Care Provider Reason for Visit * Reason Onset Date Comments Praveena Wet Machine Cutter 07/20/2024 Encounter Details Date Type Department Care Team (Late st Contact Info) Description 07/20/[address] [address] Julian Estevez, RN [employer] Wet Machine Cutter Social History Tobacco Use Types Packs/Day Years [...] on file Legal Sex Female 3:20 AM MACHINE BOBBIN WINDER Gender Identity Not on file Sexual Orientation Not on file documented as of this encounter Miscellaneous Notes * Telephone Encounter - Julian Estevez, RN - 07/20/2024 7:49 PM CDT [employer]NA [employer] OPERATIONS SUPERINTENDENT DOCUMENTATION Service Line: Praveena Wet Machine Cutter at 7:55 PM Chief Complaint: Chest pain [...] capture within the note. Julian Estevez RN [facility] documented in this encounter Plan of Treatment Upcoming Encounters Date Type Department Care Team (Late st Contact Info) Description 02/22/2025 7:30 AM MACHINE BOBBIN WINDER Office Visit [facility] [place] [address] [place] [address] Prasanna Thao Jr., DO [address] [place] [address] documented as of this encounter Visit Diagnoses Not on filedocumented in this encounter Care Teams Investor Relations Director Relationship Specialty Start Date End Date Prasanna Thao Jr., DO [address] [place] [address] PCP - General Internal Medicine 02/26/23 documented as of this encounter
--- OUTSIDE RECORDS SUMMARY | 2024-07-20 20:49 | XMS_ITS | Clinical Summary ---
Author Organization [facility] Address [address] [place] [address] Phone Care Team Providers Care Golf Range Attendant Name Role Phone Keesha Bullock DO, Frederick H Primary Care Provider Allergies Active Allergy Reactions Criticality Noted Date Comments Empagliflozin Other (See Comments) 04/07/2023 Yeast infections Penicillins Hives High 09/08/2017 Medications flash glucose sensor (FreeStyle Sunny 2 Sensor) KitIndications:Type 2 diabetes mellitus with hyperglycemia, without long-term current use of insulin (CMS/[facility]) Use as directed every 2 [...] Type Department Care Team Description 07/20/[address] [facility] [address] [place] [address] Julian Estevez RN Merc Canvassing Manager 07/06/2024 External Device Data STL ABSTRACTION Provider, Abstract 06/25/2024 External Device Data STL ABSTRACTION Provider, Abstract 06/24/2024 External Device Data STL ABSTRACTION Provider, Abstract 06/22/2024 External Device Data STL ABSTRACTION Provider, Abstract 06/18/2024 Refill [facility] [address] [place] [address] Prasanna Thao Jr., DO Chronic [...] PNEUM OCOCCAL CONJUGATE VACCINE 20-VALENT (PCV20), POLYSACCHARIDE [id number] CONJUGATE, ADJUVANT 0.5 ML (PF) IM 08/07/2023 [...] on file Legal Sex Female 3:20 AM BRIDGE CRANE OPERATOR Gender Identity Not on file Sexual Orientation [...] st Contact Info) Description 02/22/2025 7:30 AM BRIDGE CRANE OPERATOR Office Visit [facility] [place] [address] [place] [address] Prasanna Thao Jr., DO [address] [place] [address] Health Maintenance Due Date Last [...] DIABETES EYE EXAM Routine 03/09/2024 3:03 PM BRIDGE CRANE OPERATOR MICROALBUMIN/CREATI NINE RATIO, RANDOM UR Routine 02/15/2024 7:13 AM CDT Type 2 diabetes mellitus with hyperglycemia, without long-term current use of insulin ([facility]/HCC) LIPID PANEL Routine 02/15/2024 7:10 AM CDT Hyperlipidemia, unspecified hyperlipidemia type HEMOGLOBIN A1C Routine 02/15/2024 7:10 AM CDT Type 2 diabetes mellitus with hyperglycemia, without long-term current use of insulin (CMS/HCC) MAMMO 3D DARREL SCREEN BILAT W OR WO CAD Routine 05/13/2023 8:12 AM BRIDGE CRANE OPERATOR Encounter for screening mammogram for malignant neoplasm of breast COLONOSCOPY REPORT 04/16/2023 8: 53 AM BRIDGE CRANE OPERATOR from Last 3 Months or Most Recently Relevant to Health Maintenance Results * DIABETES EYE EXAM (03/09/2024 3:03 PM BRIDGE CRANE OPERATOR) us Abstract Provider HEALTH MAINTENANCE Edited Resu lt - Final * MICROALBUMIN/CREATININE RATIO, RANDOM UR (02/15/2024 7:13 AM CDT) Creatinine, Urine 119 20 - 275 mg/dL [facility] MICROALBUMIN, URINE 1.4 See Note: mg/dL [facility] Comment: Reference Range: Reference Range Not established MICROALBUMIN/CREAT RATIO, UR 12 <30 mg/g creat [facility] Comment: The ADA defines abnormalities in [...] category. FASTING:YES FASTING: YES Test Performed at: [facility] [address] [facility] [place] [address] Siomara Betancourt MD Urine URINE SPECIMEN OBTAINED BY CLEAN CATCH PROCEDURE / Unknown 02/15/2024 7:13 AM CDT 02/15/2024 7:14 AM CDT Prasanna Thao Jr., DO URINE ORDERABLES Final Result [facility] [phone] [facility] [address] [facility] [place] [place] [address] * (ABNORMAL) HEMOGLOBIN A1C (02/15/2024 7:10 AM CDT) HEMOGLOBIN A1C 7.7(H) <5.7 % of total Hgb [facility] Comment: For someone without known [...] ESTIMATED AVERAGE GLUCOSE (MG/DL) 174 mg/dL [facility] ESTIMATED AVERAGE GLUCOSE (MMOL/L) 9.7 mmol/L [facility] Comment: FASTING:YES FASTING: YES Test Performed at: [facility] [address] [address] [place] [address] Siomara Betancourt Blood 02/15/2024 7:10 AM CDT 02/15/2024 7:11 AM CDT us Prasanna Thao Jr., DO CHEMISTRY ORDERABLES F inal Result [facility] [phone] [facility] [address] [address] [place] [address] * LIPID PANEL (02/15/2024 7:10 AM CDT) CHOLESTEROL 165 <200 mg/dL [facility] HDL 50 > OR = 50 mg/dL [facility] TRIGLYCERIDE 101 <150 mg/dL [facility] LDL CALCULATED 96 mg/dL (calc) [facility] Comment: Reference range: <100 Desirable range <100 mg/dL for primary prevention; <70 mg/dL for patients with CHD or diabetic patients with > or = 2 CHD risk factors. LDL-C is now calculated using the Sanjeev-Veronica calculation, which is a validated novel method providing better accuracy than the Friedewald equation in the estimation of LDL-C. Sanjeev MCMANUS et al. DORY. 2013;310(19): 4959-5497 (http://education.[employer]/faq/JVS160) CHOL/HDL RATIO 3.3 <5.0 (calc) Oleksandr Sethi NON-HDL CHOLESTEROL 115 <130 mg/dL (calc) [facility] Sethi Comment: For patients with diabetes plus 1 major ASCVD risk factor, treating to a non-HDL-C goal of <100 mg/dL (LDL-C of <70 mg/dL) is considered a therapeutic option. Test Performed at: [place] [address] [place] [address] Siomara Zee Vo Blood 02/15/2024 7:10 AM CDT 02/15/2024 7:11 AM CDT us Prasanna Thao Jr., DO CHEMISTRY ORDERABLES F inal Result [facility] [phone] [facility] [address] [address] [place], [place] [address] * MAMMO 3D DARERL SCREEN BILAT W OR WO CAD (05/13/2023 8:12 AM BRIDGE CRANE OPERATOR) Anatomical Region Laterality Modality Breast Bilateral Mammography 05/13/2023 8:13 AM BRIDGE CRANE OPERATOR Addenda Addendum by Cecile Almaguer MD on 05/28/2023 4:40 PM BRIDGE CRANE OPERATOR Addendum: The previous outside mammograms dated 08/07/2020 and 11/18/2018 were made available for comparison. There are scattered fibroglandular tissues bilaterally. No new mass, malignant calcification or architectural distortion is identified. CAD was used. IMPRESSION: No evidence of malignancy. RECOMMENDATIONS: Bilateral annual screening mammogram. BI-RADS Category 1. Negative. Impressions 05/13/2023 1:51 PM BRIDGE CRANE OPERATOR IMPRESSION: [facility] will request the patient's previous outside studies in order to assess for stability. An addendum will be provided after reviewing the outside exams. DICTATION LOCATION: [facility] Narrative 05/13/2023 1:51 PM BRIDGE CRANE OPERATOR BILATERAL FULL-FIELD DIGITAL SCREENING MAMMOGRAM WITH CAD [...] Final * COLONOSCOPY REPORT (04/16/2023 8:53 AM BRIDGE CRANE OPERATOR) Narrative Procedure Note Julian Lee MD - 04/16/2023 8:53 AM CST [facility] Endoscopy Patient Name: Temi Smith Procedure Date: [...] of Addenda: [address]; [place] [address] Julian Lee MD GI PROCEDURE ORDERABL ES Final Result from Last 3 Months or Most Recently Relevant to Health Maintenance Insurance RX M[employer]CIA PLANS (INTERNAL) [facility] RX [employer] Commercial [[id number] [employer] Commercial [[id number] RX [employer] Commercial RX [employer] Commercial RX [employer] Commercial RX [facility] [employer] PPO Advance Directives For more information, please contact: [phone] * Full Code (Latest Code Status on File) Date Activated Date Inactivated Comments 04/16/2023 7:38 AM 04/16/2023 11:49 AM Care Teams Golf Range Attendant Relationship Specialty Start Date End Date Prasanna Thao Jr., DO [address] [place] [address] PCP - General Internal Medicine 02/26/23
--- OUTSIDE RECORDS SUMMARY | 2024-07-20 20:49 | XMS_ITS | Clinical Summary ---
Author Organization [facility] Address [address] [place] [address] Phone Care Team Providers Care Games Manager Name Role Phone Darlene Solomon RASHEL Primary Care Provider [phone] Allergies Active Allergy Reactions Criticality Noted Date [...] to complete this topic Insurance Care Teams Games Manager Relationship Specialty Start Date End Date Darlene Solomon APRN PCP - General Advanced Practice Nurse 10/27/20
--- OUTSIDE RECORDS SUMMARY | 2024-07-20 20:49 | XMS_ITS | Encounter Summary ---
Author Organization [facility] Address [address] [place] [address] Attn: Epic Prelude ADT [place] [address] Care Team Providers Care Private Client Advisor Name Role Phone Keesha Bullock DO, Frederick H Primary Care Provider Encounter Details Date Type Department Care Team (Late Contact Info) Description 03/31/1995 Outpatient Historical Bertin Kowalski MD NO ADDRESS ON FILE Social History Tobacco Use Types Packs/Day Years Used Date Smoking Tobacco: Never Assessed Comments Unknown Sex and Gender Information Value Date Recorded Sex Assigned at Not on file Legal Sex Female 3:20 AM ASSOCIATE PROGRAM MANAGER Gender Identity Not on file Sexual Orientation Not on file documented as of this encounter Plan of Treatment Upcoming Encounters Date Type Department Care Team (Late Contact Info) Description 02/22/2025 7:30 AM ASSOCIATE PROGRAM MANAGER Office Visit [facility] [place] [address] [place] [address] Prasanna Thao Jr., DO [address] [place] [address] documented as of this encounter Visit Diagnoses Not on filedocumented in this encounter Care Teams Private Client Advisor Relationship Specialty Start Date End Date Prasanna Thao Jr., DO [address] [place] [address] PCP - General Internal Medicine 02/26/23 documented as of this encounter
--- OUTSIDE RECORDS SUMMARY | 2024-07-20 20:49 | XMS_ITS | CONTINUITY OF CARE DOCUMENT ---
Author Name manuelito billings Address Unknown Organization [facility] Address [address] [place] [address] Phone [phone] Care Team Providers Care Wastewater Treatment Plant Instructor Name Role Phone Paramjit Richards MD Unavailable [phone] CHARLOTTE NICOLAS Unavailable CHARLOTTE NICOLAS Unavailable PROBLEMS Condition Status Date Provider Notes Family [...] In-person encounter Office Visit Paramjit Richards MD [facility] - In-person encounter Office Visit Paramjit Richards MD [facility] Family History of CVA or Stroke:Family [...] TABLET active 1 tab twice daily [place] LISINOPRIL 5 MG ORAL TABLET active 1/2 tab in the evening [place] METFORMIN HCL 1000 MG ORAL TABLET active 1 tab twice daily [place] SOCIAL HISTORY Date Observation Value Provider social history E&M Marital Statu s: C hildren: 3 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 [...] Payer name Policy type / Coverage type [place] red green party ID [employer] [id number] ADVANCE DIRECTIVES Name Date DISCUSSED - NO [...]
[2024-07-20 20:56] LABS: INR 0.8; Prothrombin Time 11.8 Seconds (11.1-14.7)
[2024-07-20 20:57] LABS: Partial Thromboplastin Time 26.7 Seconds (22.3-36.8)
[2024-07-20 20:59] LABS: Alanine Aminotransferase 29 U/L (6-35); Albumin Level 4.8 g/dL (3.5-5.1); Alkaline Phosphatase 44 U/L (38-126); Anion Gap 15 mmol/L (4-12); Aspartate Amino Transferase 26 U/L (14-36); Bilirubin,Total 0.4 mg/dL (0.2-1.3); Blood Urea Nitrogen 14 mg/dL (7-17); Calcium 9.4 mg/dL (8.4-10.2); Carbon Dioxide 19 mmol/L (22-30); Chloride 102 mmol/L (98-107); Estimated CRCL calculation 89 ml/min; Estimated Glomerular Filt Rate > 60; Glucose 228 mg/dL (65-110); Lipase 229 U/L (23-300); Sodium 136 mmol/L (137-145)
[2024-07-20] MEDS: ASPIRIN 81 MG CHEWABLE TABLET 324 MG PO (21:06)
[2024-07-20 21:10] LABS: Troponin I < 0.012 ng/mL (0.000-0.034)
[2024-07-20 21:20] VITALS: O2SAT 99
--- NOTE | 2024-07-20 21:44 | PM.IMHP ---
H&P: HPI History of Present Illness Date/Time: 07/20/24 21:44 Chief Complaint: Chest pain Narrative: 43-year-old female with multiple medical comorbidities including vlq-[id number] diabetes mellitus, obesity, hypertension, hyperlipidemia, family history coronary artery disease. She has previously had palpitations, she has established with [facility] and has EKG, Holter monitor, exercise stress test performed without any abnormal findings. Today she was at work per usual and had sudden onset of central chest pressure with dizziness and experiencing tachycardia as well as her smart watch reporting it. Associated with dizziness. This resolved after 5 minutes of rest. On arrival to the ER she denied chest pain any longer. Her vitals were stable. EKG without acute ischemia. Troponin negative. Chest x-ray normal. She was given aspirin 324 mg and nitroglycerin. Review of Systems Review of Systems: All systems reviewed & are unremarkable except as noted in HPI and below (HPI) [facility] Past Medical History Medical History (Updated 07/20/24 @ 21:39 by Paco Villalta MD) BMI 37.0-37.9, adult Anemia BMI 38.0-38.9,adult Encounter to establish care Insomnia Diabetes mellitus Migraine Hypothyroid Hematoma of abdominal wall Depression Anxiety Hyperlipidemia Chronic pelvic pain in female Paratubal cyst Thyroid disease High blood pressure History of diabetes mellitus Surgical History Surgical History (Updated 04/29/22 @ 08:58 by Jaida Amos NP) S/P laparoscopic procedure History of tonsillectomy H/O gynecological procedure laparoscopic Novasure uterine ablation, laparoscopy, T/L - menometrorrhagia, dysmenorrhea, undesired fertility History of dilation and curettage History of section History of hysterectomy Family History Family History (Updated 04/29/22 @ 07:52 by Yani Amador [facility]) Father Diabetes mellitus Hypertension Heart disease Mother Diabetes mellitus Hypertension Cerebrovascular accident Depression Anxiety Sibling Depression Anxiety Diabetes mellitus Son Asthma Diabetes mellitus Depression Anxiety Grandparent Heart disease Diabetes mellitus Hypertension Grandparent Alcohol abuse Diabetes mellitus Hypertension Heart disease Social History Social History (Updated 08/26/22 @ 08:17 by Sera David MA) Smoking status: Never smoker Alcohol intake: never Substance use: never Substance use type: does not use Lack of Transportation: No Lack of Food: Never True Current Housing: I Have Housing Concerned About Future Housing: No Difficulty Paying Gas/Electric Bills: No Difficulty Paying for Meds: No Currently Unemployed: No Education: High School Diploma/GED Difficulty w/ Childcare or Family Care: No Living arrangements: with family Gender identity (if verbalized by the patient): Female Spiritual care concerns: No Meds Home Medications and Allergies Home Medications ?Medication ?Instructions ?Recorded ?Confirmed ?Type acetaminophen 500 mg capsule 1,000 mg (2 x 500 mg) PO Q8H 10 08/05/21 08/26/22 Rx days #60 caps atorvastatin 10 mg tablet 10 mg PO DAILY #90 tabs 04/29/22 08/26/22 Rx glipizide 5 mg tablet 5 mg PO TID #270 tabs 04/29/22 08/26/22 Rx metformin 500 mg tablet,extended 1,000 mg (2 x 500 mg) PO BID #360 04/29/22 08/26/22 Rx release 24 hr tabs rimegepant 75 mg disintegrating 75 mg PO .QOD migraine prevention 04/29/22 08/26/22 Rx tablet (Nurtec ODT) #45 tabs escitalopram oxalate 20 mg tablet 20 mg PO DAILY #90 tabs 05/01/22 08/26/22 Rx (Lexapro) semaglutide 2 mg/dose (8 mg/3 mL) 2 mg (0.75 mL) subcut WEEKLY #3 mL 07/21/22 08/26/22 Rx subcutaneous pen injector (Ozempic) buspirone 10 mg tablet 10 mg PO TID #270 tabs 08/26/22 08/26/22 Rx lisinopril 10 mg tablet 10 mg PO DAILY #90 tabs 08/26/22 08/26/22 Rx dulaglutide 4.5 mg/0.5 mL 4.5 mg (0.5 mL) subcut WEEKLY #2 mL 09/03/22 Rx subcutaneous pen injector (Trulicity) zolpidem 10 mg tablet (Ambien) See Rx Instructions PO QHS PRN 10/29/22 Rx insomnia #30 tabs levothyroxine 25 mcg tablet 25 mcg PO DAILY #90 tabs 05/21/23 Rx Allergies Allergy/AdvReac Type Severity Reaction Status Date / Time erythromycin base Allergy Unknown ASSUMING Verified 07/20/24 20:25 HIVES A KID Penicillins Allergy Unknown ASSUMING Verified 07/20/24 20:25 HIVES A KID amoxicillin AdvReac Unknown Unknown Verified 07/20/24 20:25 Vital Signs Vital Signs - 24 hr 07/20/24 20:42 07/20/24 21:20 Temperature 98.9 F Pulse Rate 88 Respiratory Rate 14 Blood Pressure 129/75 Pulse Oximetry 100 99 Oxygen Delivery Room Air Exam Const: General: comfortable and no acute distress HENMT: Mouth: Yes moist mucous membranes Eyes: Pupils: Equal, round and reactive pupils present Neck: Neck: supple Resp: Effort & Inspection: normal respiratory effort Auscultation: clear to auscultation bilaterally Cardio: Rate: regular rate Rhythm: regular rhythm GI: GI Palp: Yes Soft to palpation and No Tenderness to palpation present (GI) Neuro: Motor exam (neuro): 5/5 motor strength present throughout Extrem: General: no edema H&P: Results Labs Labs: Short CBC 07/20/24 Range/Units 20:40 WBC 8.3 (4.5-10.0) K/mm3 Hgb 12.3 D (12.0-15.0) g/dL Hct 36.9 L (37.0-47.0) % Plt Count 347 (150-375) k/mm3 BMP 07/20/24 20:40 Sodium 136 L Potassium 4.0 Chloride 102 Carbon Dioxide 19 L BUN 14 Creatinine 0.76 Glucose 228 H Calcium 9.4 Cardiac Enzymes 07/20/24 Range/Units 20:40 Troponin I < 0.012 (0.000-0.034) ng/mL Liver Function 07/20/24 Range/Units 20:40 Total Bilirubin 0.4 (0.2-1.3) mg/dL AST 26 (14-36) U/L ALT 29 (6-35) U/L Alkaline Phosphatase 44 (38-126) U/L Albumin 4.8 (3.5-5.1) g/dL Assessment and Plan Assessment and plan (1) Chest pain: Code(s): R07.9 - Chest pain, unspecified Status: Acute Plan 43-year-old female with multiple medical comorbidities including blt-xywetdo-zompjhvri diabetes mellitus, obesity, hypertension, hyperlipidemia, family history coronary artery disease. She has previously had palpitations, she has established with [facility] vascular and has EKG, Holter monitor, exercise stress test performed without any abnormal findings. Today she was at work per usual and had sudden onset of central chest pressure with dizziness and experiencing tachycardia as well as her smart watch reporting it. Associated with dizziness. This resolved after 5 minutes of rest. On arrival to the ER she denied chest pain any longer. Her vitals were stable. EKG without acute ischemia. Troponin negative. Chest x-ray normal. She was given aspirin 324 mg and nitroglycerin. ----- Admit for observation. Trend troponins. Continue aspirin. NPO midnight and Lexiscan stress test in the morning. SCDs. Saline lock IV. Full code. Hospitalist MIPS Advance Care Plan I have confirmed that the patient's Advanced Care Plan is present, code status is documented, or surrogate decision maker is listed in patient medical record.: Yes Medication Reconciliation I have utilized all available resources to obtain, update and review the patients current medications (includes all prescriptions, OTC, herbals, cannabis, and nutritional supplements).: Yes
[2024-07-20 22:04] VITALS: PULSE 81
[2024-07-20 22:05] VITALS: BP 110/73; PULSE 86; RESP 14; O2SAT 100
[2024-07-20 22:40] VITALS: BMI 35.4
--- NOTE | 2024-07-20 22:47 | ADMGEN ---
2248: This patient, Temi Smith, was admitted to IMU Room 211-01. Patient/family oriented to hospital policies and general routines including ID bracelet, bed and alarms, visiting hours, pain management, procedures, bathroom and other care routines, personal items, smoking policy, room service/diet, and visiting hours. Information on how to activate the Rapid Response Team has been discussed. Patient/Family are encouraged to report perceived risks to care and to ask questions if they do not understand what they are told or what they should do.
[2024-07-20 23:39] VITALS: BP 114/74; PULSE 77; RESP 14; TEMP 36.6; O2SAT 100
[2024-07-20 23:54] LABS: Troponin I < 0.012 ng/mL (0.000-0.034)
[2024-07-21] VITALS (8 sets, daily range): BP systolic 103–114; BP diastolic 63–65; PULSE 80–106; RESP 14; TEMP 36.6–36.8; O2SAT 97–100
--- NOTE | 2024-07-21 | ECHO_ITS ---
Patient Info Name: Temi Smith Age: 43 years : 1980 Gender: Female Ht: 64 in Wt: 201 lbs BSA: 2.07 m2 HR: 106 bpm BP: 103 / 65 mmHg Heart Rhythm: Sinus Rhythm Technical Quality: Fair Exam Date: 07/21/2024 1:52 PM Exam Location: Echo Lab Patient Status: Inpatient Admit Date: 07/20/2024 Staff Ordering Physician: Mariluz Urena MD Medical Lab Assistant: Penny Naik RDCS Attending Provider: Mariluz Urena MD Exam Type: CA echo doppler color flow Study Info Indications - Chest pain Complete two-dimensional, color flow and Doppler transthoracic echocardiogram is performed. Summary 1. Complete two-dimensional, color flow and Doppler transthoracic echocardiogram is performed. 2. Left ventricular chamber dimension is normal. 3. Left ventricular systolic function is normal, estimated at 65-70%. 4. The left ventricular diastolic function is normal. 5. Right ventricular systolic function is normal. 6. There is mild aortic valve regurgitation. Left Ventricle Left ventricular chamber dimension is normal. Left ventricular systolic function is normal, estimated at 65-70%. There is no increased left ventricular wall thickness. The left ventricular diastolic function is normal. Right Ventricle Right ventricular chamber dimension is normal. Right ventricular systolic function is normal. Left Atria Left atrial chamber dimension is normal. Right Atria Right atrial chamber dimension is normal. Atrial Septum Intact interatrial septum visualized by color flow imaging. Aortic Valve The aortic valve is not well visualized. There is no aortic valve stenosis. There is mild aortic valve regurgitation. Pulmonic Valve The pulmonic valve is not well visualized. There is no pulmonic regurgitation. Mitral Valve There is trace mitral valve regurgitation. Tricuspid Valve There is trace tricuspid valve regurgitation. Pericardium/Pleural There is no pericardial effusion. Inferior Vena Cava Normal inferior vena cava with <50% collapse upon inspiration consistent with elevated right atrial pressure, 8 mmHg. Aorta The aortic root size at the sinus of Valsalva is normal. Left Ventricular Outflow Tract Name Value Normal LVOT 2D LVOT Diameter 2.0 cm LVOT Doppler LVOT Peak Gradient 3 mmHg LVOT Mean Gradient 2 mmHg LVOT VTI 17 cm LVOT VTI/AV VTI Ratio 0.8 LVOT Stroke Volume 53 ml LVOT CO 4.2 l/min LVOT CI 2.0 l/min/m2 Pulmonic Valve Name Value Normal RVOT Doppler RVOT Peak Gradient 2 mmHg PV Doppler PV Peak Gradient 3 mmHg Mitral Valve Name Value Normal MV Doppler MV Decel Bosque 318 cm/s2 MV PHT 67 ms MV Area (PHT) 3.3 cm2 4.0-5.0 MV Diastolic Function MV E Peak Velocity 74 cm/s MV A Peak Velocity 69 cm/s MV E/A 1.1 MV Decel Time 231 ms MV Annular TDI MV E/e' (Septal) 7.5 <=8.0 MV E/e' (Lateral) 6.3 <=8.0 MV E/e' (Average) 6.9 Tricuspid Valve Name Value Normal Estimated PAP/RSVP RA Pressure 8 mmHg <=5 Aortic Valve Name Value Normal AV Doppler AV Peak Velocity 110 cm/s AV Peak Gradient 5 mmHg AV Mean Gradient 2 mmHg AV VTI 21 cm AV Area (Cont Eq VTI) 2.6 cm2 >=3.0 AV Area (Cont Eq Thony) 2.6 cm2 AV Regurgitation 2D LVOT Area 3.1 cm2 Ventricles Name Value Normal LV Dimensions 2D/MM IVS Diastolic Thickness (2D) 0.9 cm 0.6-1.0 LVID Diastole (2D) 4.1 cm 3.8-5.2 LVIW Diastolic Thickness (2D) 0.7 cm 0.6-0.9 LVID Systole (2D) 2.6 cm 2.2-3.5 LVOT Diameter 2.0 cm LV Mass (2D Cubed) 99.94 g 67.00-162.00 LV Mass Index (2D Cubed) 48 g/m2 43-95 Relative Wall Thickness (2D) 0.37 LV Fractional Shortening/Ejection Fraction 2D/MM LV Fractional Shortening (2D) 36 % 27-45 LV EF (2D Teicholz) 66 % 54-74 LV Diastolic Volume (4C MOD) 106 ml LV EF (4C MOD) 74 % LV Diastolic Volume (2C MOD) 91 ml LV EF (2C MOD) 75 % LV Diastolic Volume (BP MOD) 98 ml 46-106 LV Diastolic Volume Index (BP MOD) 47 ml/m2 29-61 LV Systolic Volume (BP MOD) 27 ml 14-42 LV Systolic Volume Index (BP MOD) 13 ml/m2 8-24 LV EF (BP MOD) 72 % 54-74 LV Diastolic Length (4C) 7.7 cm LV Systolic Length (4C) 5.2 cm LV Stroke Volume (4C MOD) 78 ml Atria Name Value Normal LA Dimensions LA Volume (4C A-L) 55 ml LA Volume (BP A-L) 54 ml RA Dimensions RA Area (4C) 12.6 cm2 <=18.0 Report Signatures
[2024-07-21] MEDS: ZOLPIDEM TARTRATE (*CRX) 5 MG TABLET PO (00:04)
[2024-07-21 02:26] LABS: Basophils Percent Auto 0.4 % (0.2-1.2); Eosinophils Absolute Auto 0.3 K/mm3 (0-0.3); Eosinophils Percent Auto 4.5 % (0-4.4); Hematocrit 33.9 % (37.0-47.0); Hemoglobin 11.4 g/dL (12.0-15.0); Immature Granulocyte Absolute 0.01 K/mm3 (0.00-0.031); Immature Granulocyte Percent A 0.1 % (0-0.5); Lymphocytes Absolute Auto 3.22 K/mm3 (0.9-3.2); Lymphocytes Percent Auto 44.8 % (18.3-44.2); Mean Corpuscular HGB Conc 33.6 g/dl (32-36); Mean Corpuscular Volume 89.2 fl (80-100); Monocytes Absolute Auto 0.4 K/mm3 (0.1-0.6); Neutrophils Absolute Auto 3.2 K/mm3 (1.3-6.7); Neutrophils Percent Auto 44.2 % (45.5-73.1); Platelet Count Result 310 k/mm3 (150-375); White Blood Count 7.2 K/mm3 (4.5-10.0)
[2024-07-21 02:38] LABS: Anion Gap 13 mmol/L (4-12); Blood Urea Nitrogen 13 mg/dL (7-17); Calcium 8.9 mg/dL (8.4-10.2); Carbon Dioxide 22 mmol/L (22-30); Chloride 104 mmol/L (98-107); Estimated CRCL calculation 113 ml/min; Estimated Glomerular Filt Rate > 60; Glucose 139 mg/dL (65-110); Potassium 4.1 mmol/L (3.4-5.0); Sodium 139 mmol/L (137-145)
[2024-07-21 02:50] LABS: Troponin I < 0.012 ng/mL (0.000-0.034)
[2024-07-21] MEDS: LEVOTHYROXINE SODIUM 25 MCG TABLET PO (06:13)
--- NOTE | 2024-07-21 07:00 | EST_ITS ---
Patient Info Name: Temi Smith Age: 43 years : 1980 Gender: Female Ht: 64 in Wt: 206 lbs BSA: 2.09 m2 Exam Date: 07/21/2024 12:02 PM Exam Location: Echo Lab Exam Room: [facility] Patient Status: Inpatient Admit Date: 07/20/2024 Staff Ordering Physician: Nikki Lemon MD Attending Provider: Mariluz Urena MD Nurse: Aishwarya Ndiaye APN Exam Type: CA stress clem w NM Study Info Indications R07.9 - Chest pain, unspecified A regadenoson stress test was performed. Summary 1. No abnormal ST/T wave changes diagnostic of ischemia with exercise, however, target heart rate was not achieved. 2. Please correlate with nuclear medicine images, reported separately. 3. Stress test supervised by Aishwarya Ndiaye NP. Stress test interpreted by Derick Wick MD. Protocol: Lexiscan Stress ECG Details Stage: REST Duration (min): 0 min : 17 sec HR (bpm): 85 SBP (mmHg): --- DBP (mmHg): --- Stage: REST Duration (min): 0 min : 56 sec HR (bpm): 88 SBP (mmHg): 104 DBP (mmHg): 77 Stage: REST Duration (min): 14 min : 1 sec HR (bpm): 86 SBP (mmHg): 104 DBP (mmHg): 77 Stage: STAGE 1 Duration (min): 1 min : 0 sec HR (bpm): 126 SBP (mmHg): 115 DBP (mmHg): 61 Stage: RECOVERY Duration (min): 1 min : 0 sec HR (bpm): 120 SBP (mmHg): 115 DBP (mmHg): 61 Stage: RECOVERY Duration (min): 2 min : 0 sec HR (bpm): 110 SBP (mmHg): 115 DBP (mmHg): 61 Stage: RECOVERY Duration (min): 3 min : 0 sec HR (bpm): 104 SBP (mmHg): 114 DBP (mmHg): 66 Stage: RECOVERY Duration (min): 3 min : 5 sec HR (bpm): 104 SBP (mmHg): 114 DBP (mmHg): 66 Rest HR: 86 bpm Peak HR: 126 bpm Rest Sys BP: 104 mmHg Peak Sys BP: 115 mmHg Max Pred HR: 175 bpm % Max Pred HR: 72 % Target HR: 149 bpm Max RPP: 14,490 bpm*mmHg Total Time: 1 min : 0 sec Rest Hopper BP: 77 mmHg Peak Hopper BP: 61 mmHg Total Dose: 0.4 mg Resting ECG Sinus rhythm. Stress ECG No abnormal ST/T wave changes diagnostic of ischemia with exercise, however, target heart rate was not achieved. Arrhythmias None. Report Signatures
[2024-07-21 07:42] LABS: Glucose Point of Care 144 mg/dl (65-105)
[2024-07-21] MEDS: busPIRone HCL 10 MG TABLET PO (09:35)
[2024-07-21] MEDS: lisinopriL 10 MG TABLET PO (09:35)
[2024-07-21] MEDS: ATORVASTATIN 10 MG TABLET PO (09:35)
[2024-07-21] MEDS: ASPIRIN 81 MG ENTERIC TABLET PO (09:35)
[2024-07-21] MEDS: ESCITALOPRAM OXALATE 10 MG TABLET 20 MG PO (09:35)
--- NOTE | 2024-07-21 15:08 | PM.DS ---
DS: Admitting Diagnosis Discharge Date 07/21/24 Admitting Diagnosis chest pain DS: Discharge Diagnosis Discharge Diagnosis (1) Chest pain: Code(s): R07.9 - Chest pain, unspecified Status: Acute Plan chest pain, palpitation DS: Summary Hospital Course Hospital Course: Patient at present chest pain and palpitations. EKG unremarkable. Cardiac enzyme are negative. stress test unremarkable. echo pending. Patient notes had chest pain/palpitation improved. She notes she had this episode several times per week. Will order heart monitor. Discussed with patient, she would follow with final echo report of the patient. Time Spent with Patient Time attestation: Total time spent providing and/or coordinating discharge services: Time spent: Greater than 30 minutes Exam Const: General: comfortable and no acute distress HENMT: Mouth: Yes moist mucous membranes Eyes: Pupils: Equal, round and reactive pupils present Neck: Neck: supple Resp: Effort & Inspection: normal respiratory effort Auscultation: clear to auscultation bilaterally Cardio: Rate: regular rate Rhythm: regular rhythm Neuro: Cranial nerves: Yes Equal, round and reactive pupils present Motor exam (neuro): 5/5 motor strength present throughout Extrem: General: no edema DS: Data Data Completed and Pending Labs on day of discharge: Labs from last 24 hours 07/21/24 07/21/24 07/20/24 07:39 02:20 23:28 WBC 7.2 RBC 3.80 L Hgb 11.4 L Hct 33.9 L MCV 89.2 MCH 30.0 MCHC 33.6 RDW 13.0 Plt Count 310 MPV 10.0 Immature Gran % (Auto) 0.1 Neut % (Auto) 44.2 L Lymph % (Auto) 44.8 H Mcdowell % (Auto) 6.0 Eos % (Auto) 4.5 H Baso % (Auto) 0.4 Lymph # (Auto) 3.22 H Mcdowell # (Auto) 0.4 Eos # (Auto) 0.3 Baso # (Auto) 0.0 Abs Immat Gran (auto) 0.01 Absolute Neuts (auto) 3.2 Absolute Nucleated RBC 0.000 Nucleated RBC % 0.0 PT INR APTT Sodium 139 Potassium 4.1 Chloride 104 Carbon Dioxide 22 Anion Gap 13 H BUN 13 Creatinine 0.59 L Estim Creat Clear Calc 113 Estimated GFR > 60 Glucose 139 H POC Capillary Glucose 144 H Calcium 8.9 Total Bilirubin AST ALT Alkaline Phosphatase Troponin I < 0.012 < 0.012 Total Protein Albumin Lipase 07/20/24 20:40 WBC 8.3 RBC 4.15 L Hgb 12.3 D Hct 36.9 L MCV 88.9 MCH 29.6 MCHC 33.3 RDW 13.0 Plt Count 347 MPV 10.1 Immature Gran % (Auto) 0.2 Neut % (Auto) 50.9 Lymph % (Auto) 40.9 Mcdowell % (Auto) 4.9 Eos % (Auto) 2.9 Baso % (Auto) 0.2 Lymph # (Auto) 3.41 H Mcdowell # (Auto) 0.4 Eos # (Auto) 0.2 Baso # (Auto) 0.0 Abs Immat Gran (auto) 0.02 Absolute Neuts (auto) 4.2 Absolute Nucleated RBC 0.000 Nucleated RBC % 0.0 PT 11.8 INR 0.8 APTT 26.7 Sodium 136 L Potassium 4.0 Chloride 102 Carbon Dioxide 19 L Anion Gap 15 H BUN 14 Creatinine 0.76 Estim Creat Clear Calc 89 Estimated GFR > 60 Glucose 228 H POC Capillary Glucose Calcium 9.4 Total Bilirubin 0.4 AST 26 ALT 29 Alkaline Phosphatase 44 Troponin I < 0.012 Total Protein 7.0 Albumin 4.8 Lipase 229 Discharge Plan Discharge Discharging Clinician: Mariluz Urena Patient Disposition: Home, Self-Care Activity: as tolerated Diet: as tolerated Discharge Instructions: please follow with PCP in one week. Please follow with heart monitor for 4 weeks and report to PCP please check your blood pressure and heart rate, Blood sugar regularly and report to PCP Patient Instructions: Antibiotic Form, Chest Pain (GEN) Patient Language: Kuwaiti Stand Alone Forms: General Discharge Information Follow-up/Referrals: Jaida Amos NP [Primary Care Provider] - Discharge Medications: Continued buspirone 10 mg tablet 10 mg PO TID Qty: 270 3RF lisinopril 10 mg tablet 10 mg PO DAILY Qty: 90 3RF Patient Comments: night metformin 500 mg tablet extended release 24 hr 1,000 mg PO BID Qty: 360 3RF Nurtec ODT 75 mg tablet,disintegrating 75 mg PO .QOD Qty: 45 3RF atorvastatin 10 mg tablet 10 mg PO DAILY Qty: 90 3RF Patient Comments: takes at night glipizide 5 mg tablet 5 mg PO TID Qty: 270 3RF Mounjaro 12.5 mg/0.5 mL pen injector 12.5 mg SUBCUT WEEKLY Patient Comments: on saturdays acetaminophen 500 mg capsule 1,000 mg PO Q8H 10 Days Qty: 60 0RF escitalopram oxalate [Lexapro] 20 mg tablet 20 mg PO DAILY Qty: 90 3RF Patient Comments: takes at night zolpidem [Ambien] 10 mg tablet See Rx Instructions PO QHS PRN (Reason: insomnia) Qty: 30 5RF Rx Instructions: 1/2 - 1 tab orally every day at bedtime PRN levothyroxine 25 mcg tablet 25 mcg PO DAILY Qty: 90 3RF Other Ambulatory Orders: CA cardiac event monitor (Routine) Timeframe: 1 Month Location: Determined by Patient Ordered By: Mariluz Urena Date of admission: 07/20/24 21:46 Primary Care Provider: Jaida Amos Admitting Provider: Nikki Lemon Attending physician on admission: Mariluz Urena Condition: Stable
== END 2024-07-21 15:45 | disposition home or self-care (01) ==
LOC: ANHED 21:39 → ANHIMU 22:09
PROVIDERS: Student in an Organized Health Care Education/Training Program; Admitting Provider General Practice; Emergency Provider Emergency Medicine; Visit Provider Internal Medicine
DX: R07.9 Chest pain, unspecified (principal); R00.2 Palpitations; F41.9 Anxiety disorder, unspecified; F32.A Depression, unspecified; E66.9 Obesity, unspecified; Z68.34 Body mass index [BMI] 34.0-34.9, adult; E11.9 Type 2 diabetes mellitus without complications; I10 Essential (primary) hypertension; E78.5 Hyperlipidemia, unspecified; Z82.49 Family history of ischemic heart disease and other diseases of the circulatory system; E03.9 Hypothyroidism, unspecified; Z90.710 Acquired absence of both cervix and uterus; Z98.890 Other specified postprocedural states; Z79.84 Long term (current) use of oral hypoglycemic drugs; Z79.85 Long-term (current) use of injectable non-insulin antidiabetic drugs; Z79.899 Other long term (current) drug therapy
CPT/HCPCS: 36415; 71046; 78452; 80048; 80053; 82948; 83690; 84484; 85025; 85610; 85730; 93005; 93017; 93306; 99285; A9270; A9502; G0378; J2785